=== PATIENT | female | born 1990 | race Caucasian/White ===

== ENCOUNTER 2020-04-08 12:32 | Outpatient (CLI) | payer OTHER, SELFPAY ==
--- NOTE | ~2020-04-08 | US_ITS ---
EXAMINATION: US OB <= 14 weeks fetus DATE: 04/08/2020 13:31 INDICATION: Supervision of . TECHNIQUE: Real-time transabdominal and transvaginal obstetric ultrasound. FINDINGS: Comparison to ultrasound dated 10/10/2019 The uterus measures 10.7 x 8.5 x 6.7 cm. There is an intrauterine gestational sac, with pole id entified. The crown rump length measures 2.14 cm, which correlates with a estimated gestational age of 8 weeks 5 days. Small subchorionic hemorrhage measuring 10 x 6 x 4 mm. heart tones are ident ified measuring 177 BPM. IMPRESSION: 1. SL IUP with an EGA of 8 weeks, 5 days (EDC by current ultrasound of 11/13/2020). 2: Small subchorionic hemorrhage. Reviewed, dictated and finalized at location B. IMPRESSION: 1. SL IUP with an EGA of 8 weeks, 5 days (EDC by current ultrasound of ). 2: Small subchorionic hemorrhage.
== END 2020-04-08 12:33 | disposition home or self-care (01) ==
LOC: ANHIMG 12:37
PROVIDERS: PCP Family Medicine; Visit Provider Obstetrics & Gynecology
DX: O09.291 Supervision of pregnancy with other poor reproductive or obstetric history, first trimester (principal); Z3A.08 8 weeks gestation of pregnancy
CPT/HCPCS: 76801

== ENCOUNTER 2020-10-23 05:35 | Inpatient (IN) | payer OTHER, SELFPAY ==
--- NOTE | 2020-10-22 22:01 | PM.IMHP ---
H&P: HPI History of Present Illness Date/Time: 10/22/20 22:01 Chief Complaint: Breech presentation and growth restriction at term. Narrative: Alysia Mcknight is a 29 year old female at 37 2/7 weeks admittied for primary cesearean section for persistant breech presentation. PNC significant for recently diagnosed growth restriction on 10/22 with an EFW at 9% the JEFFREY was low normal. The abdominal circumference measuring small. MFM who reviewed the ultrasound recommended delivery due to concern for early placental insufficiency. Patient was informed of findings and risk of continuing and risk of delivery and has opted for primary cesearean section for breech. PNC has been uncomplicated. Discussed external cephalic version and risk which I do not recommend with ultrasound findings and she does not desire attempt ECV. GBS results pending. labs reviewed. Review of Systems Review of Systems: All systems reviewed & are unremarkable except as noted in HPI and below Constitutional: Constitutional: Reports no additional constitutional complaints and Denies headache(s) Eyes: Eyes: Denies spots in vision ENT: Reports system reviewed and no additional complaints, except as documented and Denies headache(s) Cardiovascular: Cardiovascular: Denies chest pain and Denies dyspnea Respiratory: Respiratory: Denies dyspnea Gastrointestinal: Gastrointestinal: Reports no additional gastrointestinal complaints Genitourinary: Genitourinary: Reports amenorrhea Musculoskeletal: Musculoskeletal: Reports no additional musculoskeletal complaints Integumentary/Breasts: Skin/Breast: Denies breast mass and Denies rash Neurologic: Denies headache(s) Psychiatric: Psychiatric: Reports no additional psychiatric complaints [facility] Past Medical History Medical History (Updated 10/22/20 @ 20:53 by Los Charles MD) Missed Surgical History Surgical History [place] teeth removed Family History Family History Grandparent Diabetes mellitus Hypertension Father Family history of elevated blood lipids Hypertension Prostate carcinoma Cerebrovascular accident Social History Social History Smoking status: Never smoker Second hand tobacco smoke exposure: No Alcohol intake: former Substance use: never Spiritual care concerns: No Meds Home Medications and Allergies Home Medications Medication Instructions Recorded Confirmed Type vits 75-iron 28 mg-folic 1 pkg PO DAILY 09/23/19 10/22/20 History acid 800 mcg-omega3 440 mg oral pack Allergies Allergy/AdvReac Type Severity Reaction Status Date / Time No Known Allergies Allergy Verified 10/22/20 09:58 Exam Const: General: no acute distress Eyes: General: appearance normal, both eyes and all related structures Resp: Effort & Inspection: normal respiratory effort Cardio: Rate: regular rate GI: Other: Gravid no fundal tenderness no right upper quadrant pain Skin: General skin exam: no rashes or lesions noted Neuro: Cognition (Neuro): normal cognition Extrem: General: normal to inspection Psych: Mental Status: mental status grossly normal Assessment and Plan Assessment and plan (1) affected by growth restriction: Code(s): O36.5990 - Maternal care for other known or suspected poor growth, unspecified trimester, not applicable or unspecified Status: Acute Assessment and Plan: Delivery recommended via cesearean section due to breech presentation. Will proceed with cesearean section. (2) Breech presentation: Code(s): O32.1XX0 - Maternal care for breech presentation, not applicable or unspecified Status: Acute
[2020-10-23] VITALS (75 sets, daily range): BP systolic 92–121; BP diastolic 54–86; PULSE 56–165; RESP 10–18; TEMP 36.2–37; O2SAT 79–100; BMI 34.0
[2020-10-23 06:06] LABS: Basophils Absolute Auto 0.1 K/mm3 (0.0-0.1); Basophils Percent Auto 0.5 % (0.2-1.2); Eosinophils Absolute Auto 0.1 K/mm3 (0-0.3); Eosinophils Percent Auto 0.7 % (0-4.4); Hematocrit 34.8 % (37.0-47.0); Hemoglobin 11.8 g/dL (12.0-15.0); Immature Granulocyte Absolute 0.32 K/mm3 (0.00-0.031); Immature Granulocyte Percent A 3.3 % (0-0.5); Lymphocytes Absolute Auto 2.85 K/mm3 (0.9-3.2); Lymphocytes Percent Auto 29.6 % (18.3-44.2); Mean Corpuscular HGB Conc 33.9 g/dl (32-36); Mean Corpuscular Hemoglobin 31.5 pg (26-34); Mean Corpuscular Volume 92.8 fl (80-100); Mean Platelet Volume 10.3 fl (7.4-10.4); Monocytes Absolute Auto 0.8 K/mm3 (0.1-0.6); Monocytes Percent Auto 8.7 % (2.6-8.5); Neutrophils Absolute Auto 5.5 K/mm3 (1.3-6.7); Neutrophils Percent Auto 57.2 % (45.5-73.1); Platelet Count Result 227 k/mm3 (150-375); Red Blood Count 3.75 M/mm3 (4.2-5.4); Red Cell Distribution Width 12.9 % (11.5-14.5); White Blood Count 9.6 K/mm3 (4.5-10.0)
[2020-10-23] MEDS: LACTATED RINGERS 1,000 ML 125 ML IV CONT (06:22)
--- NOTE | 2020-10-23 06:29 | LDADM ---
This patient, Alysia Mcknight, was admitted to Labor/Delivery/Recovery 120 on 10/23/20 at 05:35. Plans for scheduled section, pain management and were discussed with patient. Patient/family oriented to hospital policies and general routines including ID bracelet, bed and alarms, visiting hours, pain management, procedures, bathroom and other care routines, personal items, smoking policy, room service/diet and guest tray routines, infant security routines, and visiting hours. Patient/Family are encouraged to report perceived risks to care and to ask questions if they do not understand what they are told or what they should do. See OBIX for further documentation.
--- NOTE | 2020-10-23 06:45 | WPDANESEPPF ---
Anes - Initial Pre Proc Eval Procedure: Operation Date: 10/23/20 07:30 Proposed Procedures p Section - Los Charles MD Date/Time: 10/23/20 06:45 Surgeon: Los Charles MD Pre Op Diagnosis: Section Patient Data Age: 29 Gender: F Height: 1.6 m Weight: 87.27 kg Last Vital Signs Temp 36.6 C 10/23/20 06:34 Pulse 74 10/23/20 06:32 BP 107/65 10/23/20 06:32 Allergies Allergy/AdvReac Type Severity Reaction Status Date / Time No Known Allergies Allergy Verified 10/22/20 09:58 Home Medications Medication Instructions Recorded Confirmed Type vits 75-iron 28 mg-folic 1 pkg PO DAILY 09/23/19 10/22/20 History acid 800 mcg-omega3 440 mg oral pack Laboratory Tests 10/23/20 10/23/20 05:58 05:58 WBC 9.6 K/mm3 K/mm3 (4.5-10.0) RBC 3.75 M/mm3 L M/mm3 (4.2-5.4) Hgb 11.8 g/dL L g/dL (12.0-15.0) Hct 34.8 % L % (37.0-47.0) MCV 92.8 fl fl (80-100) MCH 31.5 pg pg (26-34) MCHC 33.9 g/dl g/dl (32-36) RDW 12.9 % % (11.5-14.5) Plt Count 227 k/mm3 k/mm3 (150-375) MPV 10.3 fl fl (7.4-10.4) Immature Gran % (Auto) 3.3 % H % (0-0.5) Neut % (Auto) 57.2 % % (45.5-73.1) Lymph % (Auto) 29.6 % % (18.3-44.2) [place] % (Auto) 8.7 % H % (2.6-8.5) Eos % (Auto) 0.7 % % (0-4.4) Baso % (Auto) 0.5 % % (0.2-1.2) Lymph # (Auto) 2.85 K/mm3 K/mm3 (0.9-3.2) [place] # (Auto) 0.8 K/mm3 H K/mm3 (0.1-0.6) Eos # (Auto) 0.1 K/mm3 K/mm3 (0-0.3) Baso # (Auto) 0.1 K/mm3 K/mm3 (0.0-0.1) Abs Immat Gran (auto) 0.32 K/mm3 H K/mm3 (0.00-0.031) Absolute Neuts (auto) 5.5 K/mm3 K/mm3 (1.3-6.7) Absolute Nucleated RBC 0.0 K/mm3 K/mm3 (0.0-0.012) Nucleated RBC % 0.0 % % (0.0-0.2) RPR Pending Patient hx anesthesia problems: none Family hx anesthesia problems: none PMFSH Past Medical History Medical History (Updated 10/22/20 @ 20:53 by Los Charles MD) Missed Surgical History Surgical History [place] teeth removed Family History Family History Grandparent Diabetes mellitus Hypertension Father Family history of elevated blood lipids Hypertension Prostate carcinoma Cerebrovascular accident Social History Social History Smoking status: Never smoker Second hand tobacco smoke exposure: No Alcohol intake: former Substance use: never Spiritual care concerns: No Anes - Eval Final PreProcedure Day of Procedure 10/23/20 06:45 Patient weight: obese Heart: regular rate and rhythm Lungs: clear to auscultation and normal air movement Airway: Mallampati scale class II Neurological: alert and oriented Last oral intake: >/= 8 hours ASA classification: II Emergent: no Anesthetic plan: proceed Anesthesia type and monitoring: regional spinal and standard monitoring Informed Consent: The patient's anesthetic plan and its attendant risks and benefits were discussed with the patient/family/POA. Questions were solicited and answers provided to the satisfaction of the patient/family/POA.
--- NOTE | 2020-10-23 07:09 | WPDHPUPDATE1 ---
History and Physical Update Update Date/Time: 10/23/20 07:09 History and Physical has been reviewed, including an updated exam of the patient. There are NO changes in the patient's condition. Risks, benefits, and alternatives have been discussed and questions answered. Patient agrees to proceed with procedure.
--- NOTE | 2020-10-23 08:29 | PM.PROC ---
Procedure Note - Detailed Date of procedure: 10/23/20 Pre-op diagnosis: Section 1. Breech presentation 2. growth restriction at term Post-op diagnosis: same Procedure performed: Primary low transverse cesearean section. Description of procedure: After informed consent was obtained patient was taken to the operating room and adequate spinal anesthesia was administered. She was placed in supine position and prepped and draped in sterile fashion. heart tones were auscultated prior to a drape. Attention was turned to the abdomen and a Pfannenstiel skin incision was made along her prior Pfannenstiel scar. The subcutaneous tissue was dissected with scalpel and cautery. The fascia was incised in the midline stented bilaterally with Benoit scissors. The fascia was from rectus muscle superiorly and inferiorly bluntly and sharply. The midline was identified the midline was entered bluntly. The pelvic organs were visualized. The lower uterine segment and vesico-uterine peritoneum was visualized. A bladder flap was made. Bladder was dissected from the lower uterine segment. A low-transverse uterine incision was made and was extended bluntly. The amniotic cavity was entered. Clear fluid was noted. The buttocks were visualized and gently grasped and the legs were delivered in flex position. The arms were then delivered and the head was delivered. The infant was vigorously crying upon delivery. The cord was doubly clamped and cut and the infant was handed to nursery staff in attendance. Cord segment was obtained for cord gases. Cord blood was obtained. The placenta was removed manually. The uterine cavity was sponge curetted. The uterus was noted to have good tone. The uterus was exteriorized the incision of the uterus was closed in a running locking fashion with 0 Vicryl and a 2nd umbricating stitch of 0 Vicryl. Hemostasis was noted. The posterior cul-de-sac was irrigated. Uterus was placed back into the abdomen. The paracolic gutters were irrigated the uterine incision was inspected again and noted to be hemostatic. Interceed adhesion barrier was placed at the lower uterine segment and anterior uterus. The peritoneum was approximated in the midline with suture of [id number] of 3 O Vicryl. The fascia was closed in a running fashion with 0 Vicryl. There was an area at the left fascia area that was reinforced with figure of eight stitch of 0.Vicryl. Hemostasis was noted. Hemostasis was noted. Subcutaneous tissue was irrigated hemostasis obtained with cautery. The skin incision was closed with 4 O Vicryl on a Marcus needle. Dermabond was placed. Hemostasis was noted. The uterus was firm below the umbilicus. The QBL was 485cc. Sponge count was correct x3. The patient tolerated procedure well and was taken to recovery in stable condition. Anesthesia: spinal Surgeon: Los Charles MD Nuclear Power Plant Engineer: Nehal Salazar Estimated blood loss (mL): 485 IV fluids (mL): 800 Urine output (mL): 500 Drains: No Packing: No Pathology: yes (Placenta and cord) Complications: No immediate complications Condition: stable Disposition: floor (Recovery) Findings: Normal appearing uterus and fallopian tubes and ovaries. Fetus in yoko breech presentation. 5lb 10oz. Apgars 9,9.
[2020-10-23] MEDS: OXYTOCIN 30 UNITS/NS 500 ML 30 UNITS/500 ML BAG 125 UNITS IV CONT (09:11)
[2020-10-23 09:32] LABS: Rapid Plasma Reagin Non-Reactive (NonReactive)
--- NOTE | 2020-10-23 10:40 | PC.NURSE ---
Pt arrived on unit via stretcher accompanied by spouse. PT alert and awake and oriented to room 277 and surrounding area. PT introductions made and plan of care discussed per post op c section, pain management, breast feeding, daily care activities. Welcome packet reviewed and discussed. PT verbalized understanding of such care.
[2020-10-23] MEDS: KETOROLAC 30 MG/ML VIAL (*BKC) IV PUSH ×2 (11:13→17:14)
[2020-10-23] MEDS: ACETAMINOPHEN 325 MG TABLET 650 MG PO (14:23)
[2020-10-23] MEDS: DEXTROSE 5%/0.45% SOD CHL 1,000 ML 125 ML IV CONT (14:23)
[2020-10-23] MEDS: SIMETHICONE 80 MG TAB.CHEW PO ×2 (14:24→17:13)
[2020-10-23] MEDS: DOCUSATE SODIUM 100 MG CAPSULE PO (17:14)
[2020-10-23] MEDS: diphenhydrAMINE HCl INJ 50 MG/ML VIAL 25 MG IV PUSH (20:49)
[2020-10-24] MEDS: KETOROLAC 30 MG/ML VIAL (*BKC) IV PUSH (02:07)
[2020-10-24] MEDS: ACETAMINOPHEN 325 MG TABLET 650 MG PO ×2 (02:11→12:12)
[2020-10-24 05:17] LABS: Basophils Percent Auto 0.3 % (0.2-1.2); Eosinophils Absolute Auto 0.1 K/mm3 (0-0.3); Eosinophils Percent Auto 0.5 % (0-4.4); Hematocrit 30.2 % (37.0-47.0); Hemoglobin 10.7 g/dL (12.0-15.0); Immature Granulocyte Absolute 0.18 K/mm3 (0.00-0.031); Immature Granulocyte Percent A 1.5 % (0-0.5); Lymphocytes Absolute Auto 1.75 K/mm3 (0.9-3.2); Lymphocytes Percent Auto 14.7 % (18.3-44.2); Mean Corpuscular HGB Conc 35.4 g/dl (32-36); Mean Corpuscular Hemoglobin 33.2 pg (26-34); Mean Corpuscular Volume 93.8 fl (80-100); Mean Platelet Volume 10.7 fl (7.4-10.4); Monocytes Absolute Auto 1.1 K/mm3 (0.1-0.6); Monocytes Percent Auto 9.2 % (2.6-8.5); Neutrophils Absolute Auto 8.8 K/mm3 (1.3-6.7); Neutrophils Percent Auto 73.8 % (45.5-73.1); Platelet Count Result 181 k/mm3 (150-375); Red Blood Count 3.22 M/mm3 (4.2-5.4); White Blood Count 11.9 K/mm3 (4.5-10.0)
[2020-10-24 08:20] VITALS: BP 123/64; PULSE 93; RESP 18; TEMP 37.1
[2020-10-24] MEDS: DOCUSATE SODIUM 100 MG CAPSULE PO ×2 (08:20→16:42)
[2020-10-24] MEDS: IBUPROFEN 600 MG TABLET PO ×3 (08:20→23:45)
[2020-10-24] MEDS: TETANUS,DIPHTHERIA,AC PERTUSSIS ADULT (0.5 ML) BOOSTRIX IM (08:20)
[2020-10-24] MEDS: POLYSACCHARIDE IRON COMPLEX 150 MG CAPSULE PO (08:20)
[2020-10-24] MEDS: MULTIVIT/MIN/PREN/FOL AC/IRON TABLET 1 TAB PO (08:20)
--- NOTE | 2020-10-24 09:46 | WPDANLDPN2 ---
Anes-Prog Note L&D Date/Time: 10/24/20 09:46 Comfortable throughout: section Neuraxial method: spinal Epidural/Spinal procedure site: clean & non-tender Neuro status: Neuro function grossly intact. Cardiovascular status: normal Respiratory status: normal Airway patency: baseline Mental status: baseline Post-Op hydration status: normal Vital Signs: Last Vital Signs Temp 36.9 C 10/23/20 23:00 Pulse 79 10/23/20 23:00 Resp 14 10/23/20 23:00 BP 99/54 L 10/23/20 23:00 Pulse Ox 95 10/23/20 23:00 Pain score (VAS): 2 I/O: Intake & Output 10/23/20 10/24/20 10/24/20 23:59 07:59 15:59 Intake Total 1500 Output Total 1900 Balance -400 Post-procedural complaints: pruritis moderate, treatment effective Patient feedback: Patient satisfied with anesthetic care.
--- NOTE | 2020-10-24 09:46 | WPDANLDNPN2 ---
Anes-Prog Note L&D-Neuraxial Date/Time: 10/24/20 09:46 Neuraxial medications: intrathecal PF morphine Opiod-related complaints: pruritis moderate, treatment effective Patient feedback: Patient satisfied with post-operative pain management.
--- NOTE | 2020-10-24 11:20 | P.PNOB_ITS ---
OB - PN: Subj Subjective Date/time seen: 10/24/20 11:20 Patient comments: no complaints, pain well controlled, incisional pain, tolerating diet, flatus present and other (Lochia similar to menses) baby status: doing well OB - PN: Obj Data Labs CBC & Chem 7: 10/24/20 04:46 Labs: Laboratory Results - last 24 hr 10/24/20 04:46 WBC 11.9 H RBC 3.22 L Hgb 10.7 L Hct 30.2 L MCV 93.8 MCH 33.2 D MCHC 35.4 RDW 13.0 Plt Count 181 MPV 10.7 H Immature Gran % (Auto) 1.5 H Neut % (Auto) 73.8 H Lymph % (Auto) 14.7 L [place] % (Auto) 9.2 H Eos % (Auto) 0.5 Baso % (Auto) 0.3 Lymph # (Auto) 1.75 [place] # (Auto) 1.1 H Eos # (Auto) 0.1 Baso # (Auto) 0.0 Abs Immat Gran (auto) 0.18 H Absolute Neuts (auto) 8.8 H Absolute Nucleated RBC 0.0 Nucleated RBC % 0.0 OB - PN A/P Plan day: 1 (s/p C section, doing well) Plan: routine care Time Spent With Patient Time: Total time spent is greater than 50% in coordination of care (as documented) at patient's floor/unit and/or counseling patient: Exam Const: General: no acute distress Resp: Auscultation: clear to auscultation bilaterally Cardio: Rate: regular rate Rhythm: regular rhythm GI: Inspection: non-distended, incision (Intact without erythema, drainage, or induration) and other (Fundus firm and nontender at umbilicus) GI Palp: Yes abdominal tenderness (appropriate ) and Yes Soft to palpation Extrem: General: no edema
[2020-10-24] MEDS: HYDROcodone/acetaminophen (*CRX) 5-325 MG TABLET 1 TAB PO (14:29)
[2020-10-24] MEDS: HYDROcodone/acetaminophen (*CRX) 10-325 MG TABLET 1 TAB PO (18:56)
[2020-10-24 19:00] VITALS: BP 100/58; PULSE 83; RESP 14; TEMP 36.7; O2SAT 99
[2020-10-25] MEDS: HYDROcodone/acetaminophen (*CRX) 10-325 MG TABLET 1 TAB PO ×2 (03:15→17:40)
[2020-10-25] MEDS: DOCUSATE SODIUM 100 MG CAPSULE PO ×2 (07:39→16:25)
[2020-10-25] MEDS: MULTIVIT/MIN/PREN/FOL AC/IRON TABLET 1 TAB PO (07:40)
[2020-10-25] MEDS: IBUPROFEN 600 MG TABLET PO ×3 (07:40→23:44)
[2020-10-25 08:20] VITALS: BP 106/66; RESP 18; TEMP 37
--- NOTE | 2020-10-25 09:50 | PM.OBPNVD ---
OB - PN: Subj Subjective Date/time seen: 10/25/20 09:50 Patient comments: no complaints, pain well controlled, tolerating diet, flatus present and other (Ambulating and voiding without problems. Lochia similar to menses) baby status: doing well OB - PN: Obj Data Labs CBC & Chem 7: 10/24/20 04:46 OB - PN A/P Plan day: 2 (s/p C section, doing well) Plan: routine care Comments: Baby's bilirubin is improving, now off bili lights. She was told she could possibly go home after 7 pm tonight (per duplicator punch operator), so we agreed to keep her overnight again tonight and plan likely discharge tomorrow Time Spent With Patient Time: Total time spent is greater than 50% in coordination of care (as documented) at patient's floor/unit and/or counseling patient: Time with patient: less than 15 minutes Exam Const: General: no acute distress Resp: Auscultation: clear to auscultation bilaterally Cardio: Rate: regular rate Rhythm: regular rhythm GI: Inspection: non-distended, incision (Intact without erythema, drainage, or induration) and other (Fundus firm and nontender below umbilicus) GI Palp: Yes abdominal tenderness (appropriate) and Yes Soft to palpation Extrem: General: no edema
[2020-10-25] MEDS: ACETAMINOPHEN 325 MG TABLET 650 MG PO (11:25)
[2020-10-25 19:46] VITALS: BP 128/69; PULSE 72; RESP 17; RESP 18; TEMP 36.7; O2SAT 100; O2SAT 98
[2020-10-26] MEDS: HYDROcodone/acetaminophen (*CRX) 5-325 MG TABLET 1 TAB PO (03:22)
[2020-10-26 07:45] VITALS: BP 122/75; PULSE 70; RESP 16; TEMP 36.8; O2SAT 100
[2020-10-26] MEDS: IBUPROFEN 600 MG TABLET PO (08:58)
[2020-10-26] MEDS: MULTIVIT/MIN/PREN/FOL AC/IRON TABLET 1 TAB PO (08:59)
[2020-10-26] MEDS: DOCUSATE SODIUM 100 MG CAPSULE PO (08:59)
--- NOTE | 2020-10-26 11:26 | PC.NURSE ---
Consulted with patient, reviewed infant feeding cues, frequencies, duration of feedings, feeding elimination flow sheet, and signs of adequate intake. Demonstrated stimulation techniques to wake infant for feeding. Assisted with infant to breast. Reviewed positioning/alignment, holding breast and asymmetrical latch on. Infant was able to latch well but would not continue to suck on the breast or on nipple shield. Infant Infant sleepy at the breast. Attempted to get infant to feed at breast for at least 15 minutes at 955 and again at 1100. Reviewed signs of a correct latch, effective nursing and suck swallow ratio. Mother does not have pain with pumping or when infant is at breast. Nipple care reviewed. Instructed mother to call out for RN assistance if she is unable to latch for feeding or she has discomfort with nursing. Instructed feeding should be initiated three hours from start of last feeding or if feeding cues are noted before. Mother voiced understanding of information shared. Instructions reviewed on breast pump care and usage, pumping schedule, nipple care, and collection and storage of breast milk. Encouraged [id number], breast massage and manual expression to stimulate supply. Assessed patient for correct flange size, placement and draw. Patient verbalizes and demonstrates understanding of instructions. Mother verbalizes she is able to independently latch infant when is more awake at the breast. She denies any nipple discomfort, is feeding as required and waking to feed if needed. has been attempting to feed at breast for 15 minutes and then gets supplement of breastmilk then formula. has lost 9.21 percent of weight, and is currently meeting outcomes output, jaundice and feeding frequencies. Mother states she feels confident to continue effective at home. Mom given info on services for questions once she gets home. Reviewed transition to breast milk, signs of adequate intake, and engorgement/relief. Instructed to call ICP if intake/output less than required. Reviewed community resources on the [facility] website and in the Mom/Baby guide. Information on outpatient services provided. Mother has no further questions at this time.
[2020-10-26] MEDS: ACETAMINOPHEN 325 MG TABLET 650 MG PO (12:25)
--- NOTE | 2020-10-26 12:30 | PC.NURSE ---
Patient viewed the discharge video Mother & Baby Care, The First Two Weeks . Patient was given the opportunity and encouraged to ask questions. Patient verbalized understanding of information shared and has been given the mother/baby guide for home reference.
[2020-10-27 10:43] VITALS: BP 118/66; PULSE 75; RESP 16; TEMP 36.9; O2SAT 100
--- NOTE | 2020-11-16 22:46 | PM.OBDSVD ---
DS: Admitting Diagnosis Admitting Diagnosis Admitting Diagnosis: 1. Intrauterine growth restriction. 2. Breech presentation DS: Discharge Diagnosis Discharge Diagnosis (1) Breech presentation: Code(s): O32.1XX0 - Maternal care for breech presentation, not applicable or unspecified Status: Acute (2) affected by growth restriction: Code(s): O36.5990 - Maternal care for other known or suspected poor growth, unspecified trimester, not applicable or unspecified Status: Acute OB - DS: Summary OB Procedures : Ultrasound OB Procedures Intrapartum: low cervical, transverse OB Procedures: : None Peripartum Data Procedures: Procedures Operation Date: 10/23/20 07:30 Actual Procedures Side Surgeon p Section Los Charles MD Time Spent with Patient Time attestation: Total time spent providing and/or coordinating discharge services: Exam Const: General: comfortable and no acute distress Resp: Effort & Inspection: normal respiratory effort Auscultation: clear to auscultation bilaterally Cardio: Rate: regular rate GI: Other: fundus below umbilicus, incision no drainage or erythema, intact Psych: Mental Status: mental status grossly normal Affect: normal affect DS: Data Data Completed and Pending Completed studies during hospitalization: Pending at discharge 10/23/20 08:11 Surgical [PTH] Routine Procedures/Treatments: Primary low transverse cesearean section Discharge Plan Discharge Attending physician on discharge: Los Charles Consulting providers: Christiano Rodrigez ; Denisa Silverman Discharging Clinician: Los Charles Anticipated Discharge Date/Time: 10/26/20 08:36 Patient Disposition: Home, Self-Care Activity: may shower, may drive after 2 weeks and pelvic rest Diet: regular Discharge Instructions: Post cesearean section instructions. Call for fever, saturating more than a pad an hour, leg pain or redness. May take over the counter Ibuprofen or Motrin for pain as needed. Follow directions on bottle. Take PNV daily. Education: Mom and Baby Guide Given to: Mother Follow-Up: Call your delivering provider's office for an appointment to be seen in: 1 Week Mom and baby [facility] come to the [facility] for the follow-up appointment. Appointment Date/Time: October 27, 2020 at 11:00 am What to expect at your follow-up visit: Blood Pressure Check Physical Assessment Call [phone] if you are unable to keep your appointment time. BREAST CARE: * Wear a snug supportive bra. * For engorgement discomfort: Breast Feeding: * Apply warm moist washcloths * Express milk as needed to relieve engorgement * Wear loose clothing Bottle Feeding: * May apply ice packs * For sore nipples: * Identify correct latch-on * Apply warm moist washcloths before and after nursing * Air dry nipples after nursing * May apply Lansinoh cream to nipples ABDOMINAL INCISION: (if applicable) * Allow incision to air dry * Do NOT use lotions for powders on your incision * When showering, allow soap and water to run over the incision, but do not wash incision EPISIOTOMY/PERINEAL CARE: * Until bleeding stops, use your juani bottle after urinating * Change your pad frequently throughout the day * You may take sitz baths several times a day (fill your bathtub with warm water and soak for 20 minutes.) Do NOT bathe in the water * No tub baths until seen by your physician - You may shower ACTIVITY: * Rest as much as possible. * Do not exercise or lift anything heavier than your baby (such as laundry or other children.) * Avoid stairs or driving as much as possible. * Do not put anything into the vagina. No douching, tampons, or sexual activity until seen by physician. NOTIFY PHYSICIAN IF YOU HAVE AN
== END 2020-10-26 13:20 | disposition home or self-care (01) | DRG 788 ==
LOC: ANHLDR 05:39 → ANHOB2 11:43
PROVIDERS: Admitting Provider Obstetrics & Gynecology; PCP Family Medicine; Visit Provider Obstetrics & Gynecology
PROC: 10D00Z1 Extraction of Products of Conception, Low, Open Approach (ICD-10-PCS; CPT 59514; principal; 2020-10-23 07:30)
DX: O32.1XX0 Maternal care for breech presentation, not applicable or unspecified (principal); Z37.0 Single live birth; Z3A.37 37 weeks gestation of pregnancy; O36.5930 Maternal care for other known or suspected poor fetal growth, third trimester, not applicable or unspecified; O99.214 Obesity complicating childbirth; E66.9 Obesity, unspecified; O99.73 Diseases of the skin and subcutaneous tissue complicating the puerperium; L29.9 Pruritus, unspecified
CPT/HCPCS: 36415; 85025; 86592; 86850; 86900; 86901; 88307; 90715; A9270; J0131; J1200; J1885; J2274; J2370; J2590; J7120

== ENCOUNTER 2022-08-23 10:55 | Outpatient (RCR) | payer OTHER, SELFPAY ==
--- NOTE | ~2022-08-23 | US_ITS ---
EXAMINATION: US OB BPP wo non-stress DATE: 08/23/2022 12:23 BEAM MACHINE OPERATOR INDICATION: Low baseline in office. Evaluate well-being. TECHNIQUE: Real-time transabdominal obstetric ultrasound. FINDINGS: No prior studies for comparison. There is a single living fetus in vertex presentation. The placenta is fundal without placenta previ a. cardiac activity and movement is noted with a heart rate of 122 beats per minute. Biophysical profile: breathin of 2 movement: 2 of 2 tone: 2 of 2 Amniotic flud pocket: 2 of 2 Total score: 8 of 8 IMPRESSION: 1. Single living intrauterine in vertex presentation. 2: Total biophysical profile score of 8/8. Reviewed, dictated and finalized at location A. MACHINE OPERATOR
[2022-08-23 11:43] VITALS: BP 116/69; PULSE 83
--- NOTE | 2022-08-23 12:30 | PC.NURSE ---
Spoke with Dr. Charles, orders to discharge to home after reactive NST and BPP 05/02.
== END 2022-10-22 07:42 | disposition home or self-care (01) ==
LOC: ANHOBOP 10:55
PROVIDERS: PCP Family Medicine; Visit Provider Obstetrics & Gynecology
DX: O36.8330 Maternal care for abnormalities of the fetal heart rate or rhythm, third trimester, not applicable or unspecified (principal); Z3A.34 34 weeks gestation of pregnancy
CPT/HCPCS: 59025; 76819

== ENCOUNTER 2022-10-01 07:07 | Inpatient (IN) | payer OTHER, SELFPAY ==
[2022-10-01] VITALS (166 sets, daily range): BP systolic 78–137; BP diastolic 39–80; PULSE 78–140; RESP 15–17; TEMP 37.2–37.4; O2SAT 79–100; BMI 37.5
--- NOTE | 2022-10-01 11:49 | LDADM ---
This patient, Alysia Mcknight, was admitted to Labor/Delivery/Recovery 102 on 10/01/22 at 07:07. Plans for labor, pain management and were discussed with patient. Patient/family oriented to hospital policies and general routines including ID bracelet, bed and alarms, visiting hours, pain management, procedures, bathroom and other care routines, personal items, smoking policy, room service/diet and guest tray routines, security routines, and visiting hours. Patient/Family are encouraged to report perceived risks to care and to ask questions if they do not understand what they are told or what they should do. See OBIX for further documentation.
[2022-10-01 12:14] LABS: Basophils Absolute Auto 0.1 K/mm3 (0.0-0.1); Basophils Percent Auto 0.4 % (0.2-1.2); Hematocrit 37.4 % (37.0-47.0); Hemoglobin 12.2 g/dL (12.0-15.0); Immature Granulocyte Absolute 0.42 K/mm3 (0.00-0.031); Immature Granulocyte Percent A 2.4 % (0-0.5); Lymphocytes Absolute Auto 1.64 K/mm3 (0.9-3.2); Lymphocytes Percent Auto 9.4 % (18.3-44.2); Mean Corpuscular HGB Conc 32.6 g/dl (32-36); Mean Corpuscular Hemoglobin 31.1 pg (26-34); Mean Corpuscular Volume 95.4 fl (80-100); Mean Platelet Volume 10.7 fl (7.4-10.4); Monocytes Absolute Auto 0.7 K/mm3 (0.1-0.6); Monocytes Percent Auto 4.1 % (2.6-8.5); Neutrophils Absolute Auto 14.6 K/mm3 (1.3-6.7); Neutrophils Percent Auto 83.7 % (45.5-73.1); Platelet Count Result 218 k/mm3 (150-375); Red Blood Count 3.92 M/mm3 (4.2-5.4); Red Cell Distribution Width 14.1 % (11.5-14.5); White Blood Count 17.4 K/mm3 (4.5-10.0)
[2022-10-01] MEDS: LACTATED RINGERS 1,000 ML 125 ML IV CONT ×3 (12:24→21:24)
[2022-10-01] MEDS: CALCIUM CARBONATE (TUMS) 500 MG (200 MG ELEMENTAL) PO (12:24)
--- NOTE | 2022-10-01 12:56 | WPDANESEPP ---
Anes - Eval Pre Procedure Procedure: labor epidural Date/Time: 10/01/22 12:56 Preop Diagnosis: labor pain Pre Op Diagnosis: Contractions Patient Data Age: 31 Gender: F Height: 1.57 m Weight: 93 kg Last Vital Signs O2 Del Method Room Air 10/01/22 11:48 Allergies Allergy/AdvReac Type Severity Reaction Status Date / Time No Known Allergies Allergy Verified 10/01/22 11:56 Home Medications Medication Instructions Recorded Confirmed Type prenat.vits,darrin,eno-[id number]-vujgt 1 tablet PO DAILY 03/01/22 10/01/22 History Laboratory Tests 10/01/22 10/01/22 11:45 11:45 WBC 17.4 K/mm3 H K/mm3 (4.5-10.0) RBC 3.92 M/mm3 L M/mm3 (4.2-5.4) Hgb 12.2 g/dL g/dL (12.0-15.0) Hct 37.4 % % (37.0-47.0) MCV 95.4 fl fl (80-100) MCH 31.1 pg pg (26-34) MCHC 32.6 g/dl g/dl (32-36) RDW 14.1 % % (11.5-14.5) Plt Count 218 k/mm3 k/mm3 (150-375) MPV 10.7 fl H fl (7.4-10.4) Immature Gran % (Auto) 2.4 % H % (0-0.5) Neut % (Auto) 83.7 % H % (45.5-73.1) Lymph % (Auto) 9.4 % L % (18.3-44.2) [place] % (Auto) 4.1 % % (2.6-8.5) Eos % (Auto) 0.0 % % (0-4.4) Baso % (Auto) 0.4 % % (0.2-1.2) Lymph # (Auto) 1.64 K/mm3 K/mm3 (0.9-3.2) [place] # (Auto) 0.7 K/mm3 H K/mm3 (0.1-0.6) Eos # (Auto) 0.0 K/mm3 K/mm3 (0-0.3) Baso # (Auto) 0.1 K/mm3 K/mm3 (0.0-0.1) Abs Immat Gran (auto) 0.42 K/mm3 H K/mm3 (0.00-0.031) Absolute Neuts (auto) 14.6 K/mm3 H K/mm3 (1.3-6.7) Absolute Nucleated RBC 0.0 K/mm3 K/mm3 (0.0-0.012) Nucleated RBC % 0.0 % % (0.0-0.2) RPR Pending Patient hx anesthesia problems: none Family hx anesthesia problems: none Results Review: All pre-operative results and documents have been reviewed as part of the pre-operative evaluation. [facility] Past Medical History Medical History Missed Surgical History Surgical History Previous section [place] teeth removed Family History Family History Grandparent Diabetes mellitus Hypertension Father Family history of elevated blood lipids Hypertension Prostate carcinoma Cerebrovascular accident Social History Social History Smoking status: Never smoker Second hand tobacco smoke exposure: No Alcohol intake: current Substance use: never Lack of Transportation: No Lack of Food: Never True Current Housing: I Do Not Have Housing Concerned About Future Housing: No Difficulty Paying Gas/Electric Bills: No Difficulty Paying for Meds: No Currently Unemployed: No Education: Bachelor's Degree Difficulty w/ Childcare or Family Care: No Spiritual care concerns: No Exam Day of Procedure 10/01/22 12:56 Patient weight: normal Heart: regular rate and rhythm Lungs: clear to auscultation and normal air movement Airway: Mallampati scale Neurological: alert and oriented
--- NOTE | 2022-10-01 14:02 | PM.IMHP ---
H&P: HPI History of Present Illness Date/Time: 10/01/22 14:02 Chief Complaint: Contractions Narrative: Patient is a at 39 6/7 by edc 10/02/22 based on LMP 12/26/21 c/w 10 week ultrasound. PNC significant for prior c/section for breech. She has been counseled regarding options/risk/benefits of repeat c/section vs trial of labor. She presented with contractions every 5 minutes starting approximately 0500. On L and D she was 2cm and contractions every 5 minutues. Cervix had changed from prior exam the day before she was 1/50%. She walked for two hours and no change but contractions mod to strong and she was admitted for early labor. She has opted to do a trial of labor. Labs reviewed. GBS neg. Review of Systems Review of Systems: All systems reviewed & are unremarkable except as noted in HPI and below Constitutional: Constitutional: Reports no additional constitutional complaints and Denies headache(s) Eyes: Eyes: Denies spots in vision ENT: Reports system reviewed and no additional complaints, except as documented and Denies headache(s) Cardiovascular: Cardiovascular: Denies chest pain and Denies dyspnea Respiratory: Respiratory: Denies dyspnea Gastrointestinal: Gastrointestinal: Reports no additional gastrointestinal complaints Genitourinary: Genitourinary: Reports amenorrhea Musculoskeletal: Musculoskeletal: Reports no additional musculoskeletal complaints Integumentary/Breasts: Skin/Breast: Denies breast mass and Denies rash Neurologic: Denies headache(s) Psychiatric: Psychiatric: Reports no additional psychiatric complaints PMFSH Past Medical History Medical History Missed Surgical History Surgical History Previous section [place] teeth removed Family History Family History Grandparent Diabetes mellitus Hypertension Father Family history of elevated blood lipids Hypertension Prostate carcinoma Cerebrovascular accident Social History Social History Smoking status: Never smoker Second hand tobacco smoke exposure: No Alcohol intake: current Substance use: never Lack of Transportation: No Lack of Food: Never True Current Housing: I Do Not Have Housing Concerned About Future Housing: No Difficulty Paying Gas/Electric Bills: No Difficulty Paying for Meds: No Currently Unemployed: No Education: Bachelor's Degree Difficulty w/ Childcare or Family Care: No Spiritual care concerns: No Meds Home Medications and Allergies Home Medications Medication Instructions Recorded Confirmed Type prenat.vits,darrin,ydr-odhp-ksfzj 1 tablet PO DAILY 03/01/22 10/01/22 History Allergies Allergy/AdvReac Type Severity Reaction Status Date / Time No Known Allergies Allergy Verified 10/01/22 11:56 Vital Signs Vital Signs - 24 hr 10/01/22 11:48 10/01/22 12:57 10/01/22 13:02 Pulse Rate 94 Blood Pressure 132/72 Pulse Oximetry 100 Oxygen Delivery Room Air 10/01/22 13:07 10/01/22 13:12 10/01/22 13:15 Pulse Rate 102 H Blood Pressure 126/75 Pulse Oximetry 100 100 Oxygen Delivery 10/01/22 13:17 10/01/22 13:22 10/01/22 13:25 Pulse Rate 91 102 H Blood Pressure 137/71 129/62 Pulse Oximetry 100 100 100 Oxygen Delivery 10/01/22 13:27 10/01/22 13:30 10/01/22 13:33 Pulse Rate 110 H 104 H 104 H Blood Pressure 126/77 133/70 116/70 Pulse Oximetry 99 Oxygen Delivery 10/01/22 13:35 10/01/22 13:36 10/01/22 13:39 Pulse Rate 115 H 111 H Blood Pressure 118/63 120/69 Pulse Oximetry 100 Oxygen Delivery 10/01/22 13:40 10/01/22 13:42 10/01/22 13:45 Pulse Rate 109 H 113 H Blood Pressure 119/66 119/69 Pulse Oximetry 99 99 Oxygen Delivery 10/01/22 13:48 10/01/22 13:50 10/01/22
--- NOTE | 2022-10-01 14:14 | PM.OBPNVD ---
OB - PN: Subj Subjective Date/time seen: 10/01/22 14:14 Narrative: FHT 135 Cat 1, AROM clear, cx 3/90/0, fluid light mec, light blood tinged, IUPC placed. Continue expectant management. OB - PN: Obj Data Labs 10/01/22 11:45 Labs: Laboratory Results - last 24 hr 10/01/22 10/01/22 11:45 11:45 WBC 17.4 H RBC 3.92 L Hgb 12.2 Hct 37.4 MCV 95.4 MCH 31.1 MCHC 32.6 RDW 14.1 Plt Count 218 MPV 10.7 H Immature Gran % (Auto) 2.4 H Neut % (Auto) 83.7 H Lymph % (Auto) 9.4 L [place] % (Auto) 4.1 Eos % (Auto) 0.0 Baso % (Auto) 0.4 Lymph # (Auto) 1.64 [place] # (Auto) 0.7 H Eos # (Auto) 0.0 Baso # (Auto) 0.1 Abs Immat Gran (auto) 0.42 H Absolute Neuts (auto) 14.6 H Absolute Nucleated RBC 0.0 Nucleated RBC % 0.0 Blood Type O Positive Antibody Screen Negative OB - PN A/P Time Spent With Patient Time: Total time spent is greater than 50% in coordination of care (as documented) at patient's floor/unit and/or counseling patient:
[2022-10-01] MEDS: FAMOTIDINE 20 MG/2 ML VIAL IV PUSH (16:14)
[2022-10-01] MEDS: OXYTOCIN 30 UNITS/NS 500 ML 30 UNITS/500 ML BAG IV CONT (16:21)
[2022-10-01] MEDS: ONDANSETRON INJ 4 MG/2 ML VIAL IV PUSH (19:43)
--- NOTE | 2022-10-01 23:46 | P.PCNOB_ITS ---
OB - Delivery Note Procedure Delivery date: 10/01/22 Procedure: Vaginal after section Events: Previous Delivery Induction method: AROM Delivery augmentation: Rupture of Membranes Delivery monitor: External FHT and Internal Uterine Route of delivery: Episiotomy description: Left Mediolateral Laceration Description: Periurethral Delivery repair: vicryl (3.0 vicryl) Specimen: Yes (placenta and cord) Quantitative Blood Loss (ml): 200 Anesthesia type: Epidural Disposition: Floor Complications: None Narrative: She was admitted in early labor. She was meagan regularly and had cervical change from her exam yesterday. She had dilated to 3cm and had AROM light meconium. IUPC placed. She progressed slowly into labor. She was pitocin augmented. She progressed to complete. Second stage of labor with decelerations. A left mediolateral episiotomy performed. delivered. Nose mouth suctioned with bulb at perineum. The anterior shoulder delivered and the rest of the infant delivered. initially had crying. Cord was doubly clamped and cut. Peds available due to meconium which while pushing the meconium was noted to be thick. Infant was eventually taken to warmer due to grunting. Placenta delivered spontaneously and intact. Uterine fundus firm. MLE and left lateral periurethral laceration repaired with 3.0 vicryl. Patient tolerated procedure well. [place] Baby Date of : 10/01/22 Time of : 23:20 Weeks of gestation at delivery: 39 gender: Male Weight (pounds): 7 Weight (ounces): 12 presentation: vertex position: Right Occiput Anterior Placenta delivery description: Spontaneous Cord Vessel Description: 3 Vessels and Clamped/Cut (short cord) score one minute: 8 score five minutes: 9
[2022-10-01] MEDS: ACETAMINOPHEN 325 MG TABLET 650 MG PO (23:54)
[2022-10-01] MEDS: OXYTOCIN 30 UNITS/NS 500 ML 30 UNITS/500 ML BAG 125 UNITS IV CONT (23:54)
[2022-10-02] VITALS (10 sets, daily range): BP systolic 106–135; BP diastolic 54–74; PULSE 88–105; RESP 18–20; TEMP 36.5–36.8; O2SAT 97–100
[2022-10-02] MEDS: BENZOCAINE 20% AER SPR (*SP) 56 GM CAN 1 SPRAY TOPICAL (00:23)
[2022-10-02] MEDS: WITCH HAZEL 40 PADS 1 PAD TOPICAL (00:23)
[2022-10-02] MEDS: LORATADINE 10 MG TABLET PO (00:24)
[2022-10-02] MEDS: IBUPROFEN 600 MG TABLET PO ×4 (00:42→22:48)
--- NOTE | 2022-10-02 01:50 | OBPPTRN ---
Patient transferred to post room #280 via wheelchair. Support person present. Oriented to unit, room, information board, rooming in, admission packet and security measures. Patient verbalizes understanding.
[2022-10-02 04:51] LABS: Hematocrit 33.4 % (37.0-47.0); Hemoglobin 11.1 g/dL (12.0-15.0)
[2022-10-02] MEDS: ACETAMINOPHEN 325 MG TABLET 650 MG PO ×3 (06:03→20:04)
--- NOTE | 2022-10-02 08:40 | P.PNOB_ITS ---
OB - PN: Subj Subjective Date/time seen: 10/02/22 08:40 Patient comments: no complaints, pain well controlled and tolerating diet [place] feeding status: exclusively breast feeding Narrative: patient doing well this AM. No complaints. Pain is well controlled. She reports minimal bleeding. She is ambulating and voiding without difficulty. She is tolerating PO. She denies N/V, fever, chills. OB - PN: Obj Data Labs 10/02/22 04:46 Labs: Laboratory Results - last 24 hr 10/01/22 10/01/22 10/02/22 11:45 11:45 04:46 WBC 17.4 H RBC 3.92 L Hgb 12.2 11.1 L Hct 37.4 33.4 L MCV 95.4 MCH 31.1 MCHC 32.6 RDW 14.1 Plt Count 218 MPV 10.7 H Immature Gran % (Auto) 2.4 H Neut % (Auto) 83.7 H Lymph % (Auto) 9.4 L [place] % (Auto) 4.1 Eos % (Auto) 0.0 Baso % (Auto) 0.4 Lymph # (Auto) 1.64 [place] # (Auto) 0.7 H Eos # (Auto) 0.0 Baso # (Auto) 0.1 Abs Immat Gran (auto) 0.42 H Absolute Neuts (auto) 14.6 H Absolute Nucleated RBC 0.0 Nucleated RBC % 0.0 Blood Type O Positive Antibody Screen Negative OB - PN A/P Plan day: 1 Plan: routine care Comments: patient doing well H/H stable was transferred due to meconium aspiration. Pt requesting day pass to visit continue routine care Time Spent With Patient Time: Total time spent is greater than 50% in coordination of care (as documented) at patient's floor/unit and/or counseling patient: Time with patient: less than 15 minutes Review of Systems Review of Systems: All systems reviewed & are unremarkable except as noted in HPI and below Exam Const: General: comfortable and no acute distress Resp: Effort & Inspection: normal respiratory effort Cardio: Rate: regular rate GI: GI Palp: Yes Soft to palpation and No Tenderness to palpation present (GI) Auscultation: normal bowel sounds Other: fundus firm and below umbilicus. Psych: Affect: normal affect
--- NOTE | 2022-10-02 08:40 | WPDANLDPN2 ---
Anes-Prog Note L&D Date/Time: 10/02/22 08:40 Comfortable throughout: labor and delivery Neuraxial method: epidural Epidural/Spinal procedure site: clean & non-tender Neuro status: Neuro function grossly intact. Cardiovascular status: normal Respiratory status: normal Airway patency: baseline Mental status: baseline Post-Op hydration status: normal Vital Signs: Last Vital Signs Temp 36.5 C 10/02/22 04:58 Pulse 100 10/02/22 04:58 Resp 20 10/02/22 04:58 BP 117/72 10/02/22 04:58 Pulse Ox 97 10/02/22 04:58 O2 Del Method Room Air 10/02/22 01:50 Pain score (VAS): 10/04 I/O: Intake & Output 10/01/22 10/02/22 10/02/22 23:59 07:59 15:59 Intake Total 1000 Output Total 200 91 Balance 800 -91 Post-procedural complaints: none Patient feedback: Patient satisfied with anesthetic care.
[2022-10-02] MEDS: MULTIVIT/MIN/PREN/FOL AC/IRON TABLET 1 TAB PO (08:53)
[2022-10-02] MEDS: DOCUSATE SODIUM 100 MG CAPSULE PO (08:53)
--- NOTE | 2022-10-02 14:23 | PC.NURSE ---
1345 Pt left on a 4-6 hour pass to visit infant @ [facility]. Her Mother drove her.
[2022-10-03] MEDS: ACETAMINOPHEN 325 MG TABLET 650 MG PO ×2 (02:06→09:45)
[2022-10-03] MEDS: MULTIVIT/MIN/PREN/FOL AC/IRON TABLET 1 TAB PO (07:28)
[2022-10-03] MEDS: IBUPROFEN 600 MG TABLET PO (07:28)
[2022-10-03] MEDS: TETANUS,DIPHTHERIA,AC PERTUSSIS ADULT (0.5 ML) BOOSTRIX IM (07:29)
[2022-10-03 08:00] VITALS: BP 119/76; PULSE 91; RESP 16; TEMP 36.4; O2SAT 100
[2022-10-03 09:21] LABS: Rapid Plasma Reagin Non-Reactive (NonReactive)
--- NOTE | 2022-10-24 09:14 | PM.OBDSVD ---
DS: Admitting Diagnosis Discharge Date 10/03/22 Admitting Diagnosis Labor DS: Discharge Diagnosis Discharge Diagnosis Plan vaginal after successful delivered OB - DS: Summary Hospital Course Hospital Course: Patient was admitted on 10/01/2022 for active labor. She had been augmented with assisted rupture of membranes. She had a successful vaginal delivery after . she did well. Her baby did get transferred she did get a pass to see the baby. On post day 2 she was doing well and was discharged to home. Her lochia was minimal she had adequate pain control. OB Procedures : Ultrasound OB Procedures Intrapartum: OB Procedures: : None Peripartum Data Infant Delivery Method: Natural Vaginal ( ) Episiotomy description: Left Mediolateral complications: none Status at Discharge Functional status at discharge: independent ambulation Time Spent with Patient Time attestation: Total time spent providing and/or coordinating discharge services: Exam Const: General: cooperative Orientation/consciousness: oriented to person, oriented to place and oriented to time HENMT: Face/Nose/Sinus: Normal external nose present Eyes: General: appearance normal, both eyes and all related structures Resp: Effort & Inspection: normal respiratory effort GI: Inspection: normal to inspection Skin: General skin exam: normal color Neuro: General: oriented to person, oriented to place and oriented to time Extrem: General: normal to inspection and no calf tenderness Psych: Appearance: grossly normal Mental Status: mental status grossly normal Discharge Plan Discharge Attending physician on discharge: [place] Consulting providers: Paola Charles ; Jacki Lambert ; Randy Stacy Discharging Clinician: [place] Patient Disposition: Home, Self-Care Activity: may shower and pelvic rest Diet: regular Discharge Instructions: Pelvic rest for 4-6 weeks. May take over the counter Ibuprofen or Tylenol for pain. Call if saturating more than a pad an hour, leg redness, pain and swelling, temperature>100.4. No strenuous activity. Education: Mom and Baby Guide Given to: Mother Follow-Up: Call your delivering provider's office for an appointment to be seen in: 2-3 Weeks BREAST CARE: * Wear a snug supportive bra. * For engorgement discomfort: Breast Feeding: * Apply warm moist washcloths * Express milk as needed to relieve engorgement * Wear loose clothing * For sore nipples: * Identify correct latch-on * Apply warm moist washcloths before and after nursing * Air dry nipples after nursing * May apply Lansinoh cream to nipples EPISIOTOMY/PERINEAL CARE: * Until bleeding stops, use your juani bottle after urinating * Change your pad frequently throughout the day * You may take sitz baths several times a day (fill your bathtub with warm water and soak for 20 minutes.) Do NOT bathe in the water * No tub baths until seen by your physician - You may shower ACTIVITY: * Rest as much as possible. * Do not exercise or lift anything heavier than your baby (such as laundry or other children.) * Avoid stairs or driving as much as possible. * Do not put anything into the vagina. No douching, tampons, or sexual activity until seen by physician. NOTIFY PHYSICIAN IF YOU HAVE ANY QUESTIONS OR IF ANY OF THE FOLLOWING SYMPTOMS OCCUR: * If your episiotomy becomes red, swollen, or more painful than what you have experienced in the hospital. * If your vaginal bleeding becomes foul smelling. * If your vaginal bleeding becomes more heavy than a period or if your bleeding changes from pink to bright red. However, you may pass an occasional walnut-sized clot once or twice for the first week . * If you experience a sharp, shooting pain in you calv
== END 2022-10-03 10:40 | disposition home or self-care (01) | DRG 807 ==
LOC: ANHLDR 11:48 → ANHOB2 10-02 02:17
PROVIDERS: Admitting Provider Obstetrics & Gynecology; PCP Family Medicine; Visit Provider Obstetrics & Gynecology
DX: O34.219 Maternal care for unspecified type scar from previous cesarean delivery (principal); Z37.0 Single live birth; O77.0 Labor and delivery complicated by meconium in amniotic fluid; O76 Abnormality in fetal heart rate and rhythm complicating labor and delivery; O71.82 Other specified trauma to perineum and vulva; O69.3XX0 Labor and delivery complicated by short cord, not applicable or unspecified; Z3A.39 39 weeks gestation of pregnancy
CPT/HCPCS: 36415; 85014; 85018; 85025; 86592; 86850; 86900; 86901; 90715; A9270; J2405; J2590; J2795; J7120

== ENCOUNTER 2024-06-26 09:46 | Outpatient (CLI) | payer OTHER, SELFPAY ==
--- NOTE | ~2024-06-26 | US_ITS ---
Pelvic ultrasound. Clinical History: First trimester , amenorrhea Technique: Realtime transabdominal and transvaginal scanning of the pelvis was performed. Color flow Doppler and Doppler spectral analysis were performed. Findings: The uterus is anteverted, and contains an intrauterine gestation. [place]-rump length of 1.4 cm corresponds to an estimated gestational age of 7 weeks 5 days. heart rate is 155 bpm.. The right ovary measures 2.3 x 3.5 x 2.1 cm. No significant right ovarian or adnexal mass is seen. The left ovary is not visualized. No significant left ovarian or adnexal mass is seen. There is no evidence of free fluid in the cul de sac. Impression: Live intrauterine gestation, with estimated gestational age of 7 weeks 5 days. heart rate is 15 5 bpm. Reviewed, dictated and finalized at [facility]. Impression: Live intrauterine gestation, with estimated gestational age of 7 weeks 5 days. heart rate is 155 bpm.
== END 2024-06-26 09:47 | disposition home or self-care (01) ==
LOC: MICIMG 09:46
PROVIDERS: PCP Nurse Practitioner Family; Visit Provider Nurse Practitioner Family
DX: N91.2 Amenorrhea, unspecified (principal)
CPT/HCPCS: 76801; 76817

== ENCOUNTER 2024-07-03 13:47 | Outpatient (CLI) | payer OTHER, SELFPAY ==
--- NOTE | ~2024-07-03 | US_ITS ---
EXAMINATION: US OB <=14 wk fetus w TV DATE: 07/03/2024 15:44 CDT INDICATION: Amenorrhea COMPARISON: 06/26/2024 TECHNIQUE: Real-time transabdominal and transvaginal obstetric ultrasound. FINDINGS: Last menstrual period is given 04/24/2024 5 para 2 Estimated date of delivery by last menstrual period is 01/29/2025 The uterus measures 9.3 x 5.2 x 7.2 cm. A gestational sac is identified within the uterus, to the right of midline. A pole is identified, with a crown-rump length that measures 2.1 cm, corresponding to an approx imate gestational age of 8 weeks and 5 days. cardiac activity is identified at a rate of 167 bpm. The right ovary measures 2.9 x 1.4 x 1.4 cm. The left ovary measures 3.0 x 2.2 x 1.6 cm. Estimated date of delivery by ultrasound is 02/07/2025 IMPRESSION: Single intrauterine gestation with an approximate gestational age of 8 weeks and 5 days, with c ardiac activity identified. Reviewed, dictated and finalized at location A. IMPRESSION: Single intrauterine gestation with an approximate gestational age of 8 weeks an d 5 days, with cardiac activity identified.
== END 2024-07-03 13:48 | disposition home or self-care (01) ==
LOC: MICIMG 13:47
PROVIDERS: PCP Nurse Practitioner Family; Visit Provider Nurse Practitioner Family
DX: O36.80X0 Pregnancy with inconclusive fetal viability, not applicable or unspecified (principal); Z3A.00 Weeks of gestation of pregnancy not specified
CPT/HCPCS: 76801; 76817

== ENCOUNTER 2024-12-24 18:53 | Observation (INO) | payer OTHER, SELFPAY ==
[2024-12-24] VITALS (65 sets, daily range): BP systolic 111–126; BP diastolic 59–72; PULSE 25–250; RESP 16; TEMP 36.2–37.3; O2SAT 78–100; BMI 32.8
--- NOTE | ~2024-12-24 | US_ITS ---
CORRECTED REPORT [place] description [place] [facility] [place] This report was recreated on 12/25/24. Original report was EXAMINATION: US OB limited w BPP DATE: 12/25/2024 14:12 CDT INDICATION: Vaginal bleeding TECHNIQUE: Real-time transabdominal obstetric ultrasound. FINDINGS: Ultrasound dated 12/25/2024 There is a single living fetus in vertex presentation. The placenta is anterior without placenta previa. cardiac activity and movement is noted with a heart rate of 150 beats per minute. Biophysical profile: breathin of 2 movement: 2 of 2 tone: 2 of 2 Amniotic flud pocket: 2 of 2 Total score: 6 of 8 IMPRESSION: 1. Single living intrauterine in vertex presentation. 2: Total biophysical profile score of 6/8. Reviewed, dictated and finalized at location A. MTDD
--- NOTE | ~2024-12-24 | US_ITS ---
US OB limited 12/25/2024 07:36 Indication: Placenta check Procedure: High-resolution Limited obstetrical ultrasound Comparison: 07/03/2024 Findings: There is a single living intrauterine in vertex presentation. heart rate 14 7 BPM. Placenta is anterior without evidence for previa. The placenta is grossly normal, without sugg estion of placenta abruption. However, ultrasound is not diagnostic of abruption since acute hemorrh age can be isoechoic to be placenta. Amniotic fluid is subjectively normal. Impression: 1: Single living intrauterine in vertex presentation. 2: Anterior placenta without previa. Reviewed, dictated and finalized at location A. Impression: 1: Single living intrauterine in vertex presentation. 2: Anterior placenta without previa.
--- NOTE | 2024-12-24 18:53 | PC.NURSE ---
Pt arrives to unit with vaginal spotting started at 1814, one quarter sized spot of blood on underwear, new pads and panties to the perineum.
--- OUTSIDE RECORDS SUMMARY | 2024-12-24 18:57 | XMS_ITS | Clinical Summary ---
Author Organization [facility] Address [address] [place] [phone] Phone Care Team Providers Care Pool Cleaner Name Role Phone Unavailable Primary Care Provider Unavailabl e Encounters Date Type Department Care Team Description 11/30/2024 External Device Data STL ABSTRACTION Provider, Abstract 11/29/2024 External Device Data STL ABSTRACTION Provider, Abstract 11/27/2024 External Device Data STL ABSTRACTION Provider, Abstract 11/13/2024 External Device Data STL ABSTRACTION Provider, Abstract 10/22/2024 External Device Data STL ABSTRACTION Provider, Abstract 10/17/2024 External Device Data STL ABSTRACTION Provider, Abstract 10/08/2024 External Device Data STL ABSTRACTION Provider, Abstract 09/26/2024 8:57 AM LEATHER PRODUCTS SUPERVISOR - 09/26/2024 11:59 PM LEATHER PRODUCTS SUPERVISOR Hospital Encounter [facility] [place] [address] [place] [address] Los Charles MD Discharge Disposition: Home or Self Care from Last 3 Months Social History Tobacco Use Types Packs/Day Years Used Date Smoking Tobacco: Never Assessed Comments Unknown Sex and Gender Information Value Date Recorded Sex Assigned at Not on file Legal Sex Female 2:05 PM CDT Gender Identity Not on file Sexual Orientation Not on file Plan of Treatment Health Maintenance Due Date Last Done Comments DTAP/TDAP/TD VACCINES (1 - Tdap) 12/03/2011 HEPATITIS B VACCINES (1 of 3 - 19+ 3-dose series) 12/03/2011 PAP SMEAR 2013 CERVICAL CANCER SCREENING 2022 HPV/Cotest (30-65) 2022 PAP SMEAR 2022 INFLUENZA VACCINE Completed 06/21/2024, , 07/15/2022, Additional history exists HPV VACCINES Aged Out No longer eligi ble based on patient's age to complete this topic PNEUMOCOCCAL VACCINE 0-49 YEARS Aged Out No longer eligible based on patient's age to complete this topic Procedures Procedure Name Priority Date/Time Associated Diagnosis Comments US OB 14+ WKS SINGLE GEST Routine 09/26/2024 10:04 AM LEATHER PRODUCTS SUPERVISOR screening for malformation using ultrasonics from Last 3 Months Results * US OB 14+ WKS SINGLE GEST (09/26/2024 10:04 AM LEATHER PRODUCTS SUPERVISOR) Anatomical Region Laterality Modality Pelvis Ultrasound 09/26/2024 9:10 AM LEATHER PRODUCTS SUPERVISOR Narrative 09/26/2024 10:12 AM LEATHER PRODUCTS SUPERVISOR STL BASIC ----- Pat. Name: ALYSIA MCKNIGHT Study Date: 09/26/2024 9:10am Pat. NO: [id number] Referring MD: LOS CHARLES MD Site: [place] Financial Agent: Che Muñiz RDMS : 1990 Age: 33 ----- INDICATION ----- Anatomy Survey no genetics with History of Labor (PTL) 37 weeks. pt states placental issue CODING ----- Diagnoses Z3A.20: Weeks of gestation O09.212: Supervision of with history of pre-term labor Z36.3: Encounter for screening for malformations Procedures 41285: Ultrasound, uterus, real time with image documentation, and maternal evaluation, after first trimester (> or = 14 weeks 0 days), transabdominal approach; single or first gestation HISTORY ----- OB History 4. Para 1 Samuels children born living (T) 1. Miscarriages 2 T1A2L1 MATERNAL ASSESSMENT ----- Physical Exam Weight 79 kg. BMI 30.82 kg/m METHOD ----- Transabdominal ultrasound examination ----- Samuels . Number of fetuses: 1 DATING ----- Cycle: regular cycle Method of dating: based on stated CATIE GA by prior assessment 20 w + 6 d CATIE by prior assessment: 02/07/2025 Ultrasound examination on: 09/26/2024 GA by U/S based upon: AC, BPD, EFW, Femur, HC GA by U/S 21 w + 1 d CATIE by U/S: 02/05/2025 Assigned: based on stated CATIE, selected on 09/26/2024 Assigned GA 20 w + 6 d Assigned CATIE: 02/07/2025 BIOMETRY ----- BPD 50.5 mm 21w 2d 67% Hadlock OFD 65.0 mm 22w 0d 86% Rochelle HC 186.0 mm 21w 0d 44% Hadlock Cerebellum tr 22.8 mm 22w 0d 76% Amaya Nuchal fold 4.7 mm AC 162.3 mm 21w 2d 59% Hadlock Femur 34.4 mm 20w 6d 40% Hadlock Humerus 33.0 mm 21w 1d 57% Rochelle HC / AC 1.15 39% Nicolaides Weight Calculation: EFW 398 g 21w 0d 57% Hadlock EFW (lb,oz) 0 lb 14 oz EFW by Hadlock ([id number]) Head / Face / Neck Biometry: Multimedia Designer 6.6 mm CM 3.0 mm 2% Nicolaides Outer IOD 31.0 mm 20w 0d 11% Rochelle Extremities / Bony Struc Biometry: FL / BPD 0.68 17% Hadlock FL / HC 0.18 13% Hadlock FL / AC 0.21 22% Hadlock GENERAL EVALUATION ----- Cardiac activity present. FHR 143 bpm. movements: visualized. Presentation: transverse Placenta: Placental site: anterior Umbilical cord: Cord vessels: 3 vessel cord. Insertion site: placental insertion: normal Amniotic fluid: Amount of AF: normal amount. MVP 4.9 cm ANATOMY ----- The following structures appear normal: Head / Neck Cranium. Lateral ventricles. Choroid plexus. Midline falx. Cavum septi pellucidi. Cerebellum. Cisterna magna. Nuchal fold. Face Lips. Profile. Nose. Palate. Orbits. Heart / Thorax 4-chamber view. RVOT view. LVOT view. 3-vessel view. 3-teaqsy-enrvvue view. Situs. Ductal arch view. Superior vena cava. Inferior vena cava. High short axis view. Cardiac rhythm. Diaphragm. Abdomen Abdominal wall. Stomach. Kidneys. Bladder. Spine Cervical spine. Thoracic spine. Lumbar spine. Sacral spine. Extremities / Arms. Right hand. Left hand. Legs. Right foot. Left foot. Skeleton MATERNAL STRUCTURES ----- Cervix Visualized Approach - Transabdominal: Cervical length 44.0 mm Right Ovary Not visualized Left Ovary Not visualized GROWTH OVERVIEW ----- Exam date GA BPD (mm) HC (mm) AC (mm) FL (mm) HL (mm) EFW (g) 09/26/2024 20w 6d 50.5 67% 186.0 44% 162.3 59% 34.4 40% 33.0 57% 398 57% COMMENT ----- Patient's name and date of were confirmed by the water control station engineer prior to the exam IMPRESSION ----- 1. Single living fetus with a gestational age of 20w 6d based on the reported clinical dates. 2. Current growth parameters are consistent with the stated EDC. The fetus is appropriate for gestational age in size at the 57% (398 g). 3. Basic anatomic survey is unremarkable. No gross structural abnormalities noted. No sonographic markers for aneuploidy noted. 4. Amniotic fluid volume is normal for gestational age. 5. The cervical length is within normal range for gestational age. 6. The right and left ovary are not well visualized. 7. Placenta is anterior . No previa/not low-lying. The placenta cord insertion is normal. Recommendations: - Further ultrasounds based on clinical indication. - Recommend interval third trimester growth and anatomy at 32 weeks. Thank you for allowing us to participate in the care of this patient. Procedure Note Ro Chua MD - 09/26/2024 STL BASIC ----- PatShirin Name:Los MCKNIGHT Date:09/26/2024 9:10am Pat. NO: [id number] MD:LOS CHARLES [facility]Che Muñiz RDMS :1990Age:33 ----- INDICATION ----- Anatomy Survey no genetics with History of Labor (PTL) 37 weeks. pt statesplacental issue CODING ----- Diagnoses Z3A.20: Weeks of gestation O09.212: Supervision of with history ofpre-term labor Z36.3: [facility] 53942: Ultrasound, uterus, real time withimage documentation, and maternal evaluation, after first trimester (> or = 14 weeks 0 days),transabdominal approach; single or first gestation HISTORY ----- OB History 4. Para 1 Samuels children born living (T) 1. Miscarriages2 T1A2L1 MATERNAL ASSESSMENT ----- Physical Exam Weight 79 kg. BMI 30.82 kg/m METHOD ----- Transabdominal ultrasound examination ----- Samuels . Number of fetuses: 1 DATING ----- Cycle:regular cycle Method of dating:based on stated CATIE GA by prior [id number] w + 6 d CATIE by prior assessment:02/07/2025 Ultrasound examination on:09/26/2024 GA by U/S based upon:AC, BPD, EFW, Femur, HC GA by U/S21 w + 1 d CATIE by U/S:02/05/2025 Assigned:based on stated CATIE, selected on 09/26/2024 Assigned GA20 w + 6 d Assigned CATIE:02/07/2025 BIOMETRY ----- BPD 50.5 mm 21w 2d67% Hadlock OFD 65.0 mm 22w 0d86% Rochelle HC 186.0 mm 21w 0d44% Hadlock Cerebellum tr 22.8 mm 22w 0d76% Amaya Nuchal fold 4.7 mm AC 162.3 mm 21w 2d59% Hadlock Femur 34.4 mm 20w 6d40% Hadlock Humerus 33.0 mm 21w 1d57% Rochelle HC / AC 1.15 39%Nicolaides Weight Calculation: EFW 398 g 21w 0d 57%Hadlock EFW (lb,oz) 0 lb 14 oz EFW by Hadlock ([id number]) Head / Face / Neck Biometry: Multimedia Designer 6.6 mm CM 3.0 mm 2%Irma Outer IOD 31.0 mm 20w 0d 11%Rochelle Extremities / Bony Struc Biometry: FL / BPD 0.68 17%Hadlock FL / HC 0.18 13%Hadlock FL / AC 0.21 22%Hadlock GENERAL EVALUATION ----- Cardiac activity present. FHR 143 bpm. movements: visualized.Presentation: transverse Placenta: Placental site: anterior Umbilical cord: Cord vessels: 3 vessel cord. Insertion site: placentalinsertion: normal Amniotic fluid: Amount of AF: normal amount. MVP 4.9 cm ANATOMY ----- The following structures appear normal: Head / Neck Cranium. Lateral ventricles. Choroid plexus.Midline falx. Cavum septi pellucidi. Cerebellum. Cisterna magna. Nuchal fold. Face Lips. Profile. Nose. Palate. Orbits. Heart / Thorax 4-chamber view. RVOT view. LVOT view. 3-vesselview. 3-tiivcx-bekixnz view. Situs. Ductal arch view. Superior vena cava. Inferior vena cava. High shortaxis view. Cardiac rhythm. Diaphragm. Abdomen Abdominal wall. Stomach. Kidneys. Bladder. Spine Cervical spine. Thoracic spine. Lumbar spine.Sacral spine. Extremities / Arms. Right hand. Left hand. Legs. Right foot.Left foot. Skeleton MATERNAL STRUCTURES ----- Cervix Visualized Approach - Transabdominal: Cervical length 44.0mm Right Ovary Not visualized Left Ovary Not visualized GROWTH OVERVIEW ----- Exam date GA BPD (mm) HC (mm) AC (mm) FL(mm) HL (mm) EFW (g) 09/26/2024 20w 6d 50.5 67% 186.0 44% 162.3 59%34.4 40% 33.0 57% 398 57% COMMENT ----- Patient's name and date of were confirmed by the water control station engineer priorto the exam IMPRESSION ----- 1. Single living fetus with a gestational age of 20w 6d based on thereported clinical dates. 2. Current growth parameters are consistent with the stated EDC. The fetusis appropriate for gestational age in size at the 57% (398 g). 3. Basic anatomic survey is unremarkable. No gross structuralabnormalities noted. No sonographic markers for aneuploidy noted. 4. Amniotic fluid volume is normal for gestational age. 5. The cervical length is within normal range for gestational age. 6. The right and left ovary are not well visualized. 7. Placenta is anterior . No previa/not low-lying. The placenta cordinsertion is normal. Recommendations: - Further ultrasounds based on clinical indication. - Recommend interval third trimester growth and anatomy at 32weeks. Thank you for allowing us to participate in the care of this patient. us Los Charles MD ORDERABLES Final Result from Last 3 Months Insurance [employer] [facility] [place]
--- OUTSIDE RECORDS SUMMARY | 2024-12-24 18:57 | XMS_ITS | Encounter Summary ---
Author Organization [facility] Address [address] [place] [address] Phone Care Team Providers Care Control Room Agent Name Role Phone Matty Barrientos MD Primary Care Provider [phone] Encounter Details Date Type Department Care Team (Latest Contact Info) Description 12/28/2023 Transcribe Orders [facility] [address] [place] [address] Krystina Reyes, GASOLINE TRUCK OPERATOR, DATA SECURITY ADMINISTRATOR [address] [place] [address] Immunity status testing (Primary Dx) Social History Tobacco Use Types Packs/Day Years Used Date Smoking Tobacco: Never Assessed Comments Unknown Sex and Gender Information Value Date Recorded Sex Assigned at Not on file Legal Sex Female 7:07 PM CDT Gender Identity Not on file Sexual Orientation Not on file documented as of this encounter Plan of Treatment Scheduled Orders Name Type Priority Associated Diagnoses Orde r Schedule HEPATITIS B SURFACE ANTIBODY (HBSAB) Lab Routine Immunity status testing Expected: 12/28/2023, Expires: 12/27/2024 documented as of this encounter Visit Diagnoses Diagnosis Immunity status testing- Primary Antibody response examination documented in this encounter Care Teams Control Room Agent Relationship Specialty Start Date End Date Matty Barrientos MD [address] [place] [address] PCP - General Pediatrics 03/27/19 documented as of this encounter
--- OUTSIDE RECORDS SUMMARY | 2024-12-24 18:57 | XMS_ITS | Clinical Summary ---
Author Organization [facility] Address [address] [place] [address] Phone Care Team Providers Care Branch Controller Name Role Phone Matty Barrientos MD Primary Care Provider Immunizations Immunization Administration Dates Next Due Influenza Vaccine, Quadrivalent, PF 06/25,07/15/2022,06/25/2020,2018 Influenza,Split Virus,Trivalent,Injectable,PF 06/21/2024 Social History Tobacco Use Types Packs/Day Years Used Date Smoking Tobacco: Never Assessed Comments Unknown Sex and Gender Information Value Date Recorded Sex Assigned at Not on file Legal Sex Female 7:07 PM CDT Gender Identity Not on file Sexual Orientation Not on file Plan of Treatment Health Maintenance Due Date Last Done Comments Hepatitis B Immunization (1 of 3 - 19+ 3-dose series) 12/03/2011 Pap Smear 2013 Cervical Cancer Screening (CCS) 2022 HPV/Cotest 2022 SARS-COV-2 Immunization (2023- season) 2024 06/08/2021, 05/17/2021 Respiratory Syncytial Virus (RSV) Immunization (Adult) (1 - 1-dose 75+ series) 12/03/2067 Hepatitis C Virus (HCV) Screening Completed 04/17/2020, 10/09/2019 DTaP/Tdap/Td Immunization Discontinued 10/24/2020 TdaP Immunization Completed 10/24/2020 Influenza Immunization Completed , 07/05/2023, 07/15/2022, Additional history exists Meningococcal Immunization (ACWY) Aged Out No longer eligible based on patient's age to complete this topic Pneumococcal Immunization Combined Aged Out No longer eligible based on patient's age to complete this topic Rotavirus Immunization Aged Out No lo nger eligible based on patient's age to complete this topic Procedures Procedure Name Priority Date/Time Associated Diagnosis Comments HEPATITIS C ANTIBODY Routine 04/17/2020 9:40 AM CDT Encounter for supervision of normal , antepartum, unspecified from Last 3 Months or Most Recently Relevant to Health Maintenance Results * HEPATITIS C ANTIBODY (04/17/2020 9:40 AM CDT) hepatitis C antibody 0.32 <1 S/CO 04/17/2020 2:52 PM CDT [facility] Comment: Signal/Cutoff ratio < 0.79 is Nondetected Signal/Cutoff ratio 0.80-0.99 is Grayzone Signal/Cutoff ratio > 0.99 is Detected Supplemental assays are recommended if signal/cutoff ratio is >/=1.00. Signal/cutoff ratio result >/= 5.00 is 97% predictive of positivity for recombinant immunoblot assay (RIBA) and will be reported to the [place] Department of Public Health as required. Blood Venipuncture / Unknown 04/17/2020 9:40 AM CDT 04/17/2020 10:13 AM CDT us Los Charles MD CHEMISTRY ORDERABLES Final R esult [facility] [address] [place] [address], from Last 3 Months or Most Recently Relevant to Health Maintenance Insurance [facility] OAP Care Teams Branch Controller Relationship Specialty Start Date End Date Matty Barrientos MD [address] [place] [address] PCP - General Pediatrics 03/27/19
--- NOTE | 2024-12-24 19:31 | OBADM ---
This patient, Alysia Mcknight, admitted to the OB room OB Post 116 for observation. Patient/family oriented to hospital policies and general routines including ID bracelet, bed and alarms, visiting hours, pain management, procedures, bathroom and other care routines, personal items, smoking policy, room service/diet, and visiting hours. Patient/Family are encouraged to report perceived risks to care and to ask questions if they do not understand what they are told or what they should do.
[2024-12-24 20:03] LABS: Add Urine Microscopic? YES; Appearance Urine Clear (Clear); Bacteria Urine None Seen /hpf; Bilirubin Urine Negative (Negative); Blood Urine 3+ (Negative); Color Urine Yellow (Yellow); Glucose Urine UA Negative (Negative); Ketones Urine Negative (Negative); Leukocyte Esterase Ur Trace LEU/UL (Negative); Nitrate Urine Negative (Negative); Non Pathogenic Casts 0-2; Protein Urine Negative (Negative); RBC Urine 0-2 /hpf (0-2); Specific Grav Ur 1.003 (1.001-1.035); Squamous Epithelial Cell Urine None Seen /hpf (Few); Urobilinogen Urine 0.2 mg/dL (<2.0); WBC Urine 0-5 /hpf (0-3); pH Urine 7.5 (5.0-9.0)
--- NOTE | 2024-12-24 20:04 | PC.NURSE ---
Addendum entered by Trinidad Hidalgo RN 12/25/24 07:31: No bleeding at this time. Original Note: Dr. Villanueva responded to page, update on pt, vaginal spotting starting at 1815, one quarter sized spot on underwear, no bleeding the last hour, blood pressure, tracing, and contractions 1 to 7.5 minutes. Orders received to administer up to two doses of terbutaline 0.25 mg and discharge pt if contractions space out.
[2024-12-24] MEDS: TERBUTALINE SULFATE 1 MG/ML VIAL 0.25 MG SUB-Q ×2 (20:32→21:33)
--- NOTE | 2024-12-24 21:43 | PC.NURSE ---
Dr. Villanueva responded to page, update on pt, tracing, contractions every 2 to 6 minutes, two doses of terbutaline, and no bleeding at this time. Orders received to discharge pt if contractions space out after second terbutaline dose.
--- NOTE | 2024-12-24 22:58 | PC.NURSE ---
Called Dr. Villanueva, update on pt, contractions every 1 to 6 minutes rated 2 out of 10, and no bleeding at this time. Orders received to administer Procardia 30 mg Xl.
[2024-12-24] MEDS: NIFEdipine 30 MG TAB.ER.24 PO (23:14)
[2024-12-25] VITALS (76 sets, daily range): BP systolic 106–121; BP diastolic 59–77; PULSE 80–118; RESP 16–18; TEMP 36.8–37; O2SAT 96–100
--- NOTE | 2024-12-25 04:01 | PC.NURSE ---
Dr. Villanueva responded to page, update on pt, contractions every 2 to 5 minutes rated 2 out of 10, no bleeding at this time, and labs. Orders received to continue to monitor pt and PO hydration.
--- NOTE | 2024-12-25 04:21 | PC.NURSE ---
Notified Dr. Villanueva of pt, no bleeding at this time, contractions every 2 to 5 minutes in a regular pattern. Orders received to perform cervical exam, D5 LR bolus 1000 ml then 125 ml/hr, and ultrasound placenta check in the morning.
--- NOTE | 2024-12-25 04:42 | PC.NURSE ---
Notified Dr. Villanueva on cervical exam and fluid initiation. Orders received to administer Procardia 30 mg Xl.
[2024-12-25] MEDS: DEXTROSE 5%/LACTATED RINGERS 1,000 ML 999 ML IV CONT (04:45)
[2024-12-25] MEDS: NIFEdipine 30 MG TAB.ER.24 PO (04:55)
[2024-12-25] MEDS: DEXTROSE 5%/LACTATED RINGERS 1,000 ML 125 ML IV CONT (05:43)
[2024-12-25] MEDS: TERBUTALINE SULFATE 1 MG/ML VIAL 0.25 MG SUB-Q (09:22)
[2024-12-25] MEDS: BETAMETHASONE SOD PHOS/ACETATE 30 MG/5 ML VIAL 12 MG IM (09:23)
[2024-12-25 09:40] LABS: Basophils Absolute Auto 0.1 K/mm3 (0.0-0.1); Basophils Percent Auto 0.7 % (0.2-1.2); Eosinophils Percent Auto 0.4 % (0-4.4); Hematocrit 31.8 % (37.0-47.0); Immature Granulocyte Absolute 0.67 K/mm3 (0.00-0.031); Immature Granulocyte Percent A 6.1 % (0-0.5); Lymphocytes Absolute Auto 1.71 K/mm3 (0.9-3.2); Lymphocytes Percent Auto 15.7 % (18.3-44.2); Mean Corpuscular HGB Conc 34.6 g/dl (32-36); Mean Corpuscular Hemoglobin 32.8 pg (26-34); Mean Corpuscular Volume 94.9 fl (80-100); Mean Platelet Volume 10.6 fl (7.4-10.4); Monocytes Absolute Auto 0.5 K/mm3 (0.1-0.6); Monocytes Percent Auto 4.6 % (2.6-8.5); Neutrophils Absolute Auto 7.9 K/mm3 (1.3-6.7); Neutrophils Percent Auto 72.5 % (45.5-73.1); Platelet Count Result 151 k/mm3 (150-375); Red Blood Count 3.35 M/mm3 (4.2-5.4); Red Cell Distribution Width 13.2 % (11.5-14.5); White Blood Count 10.9 K/mm3 (4.5-10.0)
[2024-12-25 10:26] LABS: Prothrombin Time 13.2 Seconds (11.1-14.7)
[2024-12-25 10:27] LABS: Partial Thromboplastin Time 25.3 Seconds (22.3-36.8)
[2024-12-25 10:35] LABS: Fibrinogen 324 mg/dl (215-510)
--- NOTE | 2024-12-25 12:51 | PM.IMHP ---
H&P: HPI History of Present Illness Date/Time: 12/25/24 12:51 Chief Complaint: Spotting Narrative: 34 y/o P2 at 33 weeks presented with c/o spotting which she noticed at the end of her work shift. She denied feeling contractions, she denied LOF. On L and D she was having frequent contractions and irritability, requiring terb and then Procardia x 2. She had ultrasound on 12/25 and it was normal. She had subsequent isolated spontaneous variable decelerations. Her cervix unchanged. Exam on am 12/25 was ext os ft/thick/-3. She had abruption labs performed and celestone administered with extended monitoring. Review of Systems Review of Systems: All systems reviewed & are unremarkable except as noted in HPI and below Constitutional: Constitutional: Reports no additional constitutional complaints and Denies headache(s) Eyes: Eyes: Denies spots in vision ENT: Reports system reviewed and no additional complaints, except as documented and Denies headache(s) Cardiovascular: Cardiovascular: Denies chest pain and Denies dyspnea Respiratory: Respiratory: Denies dyspnea Gastrointestinal: Gastrointestinal: Reports no additional gastrointestinal complaints Genitourinary: Genitourinary: Reports amenorrhea Musculoskeletal: Musculoskeletal: Reports no additional musculoskeletal complaints Integumentary/Breasts: Skin/Breast: Denies breast mass and Denies rash Neurologic: Denies headache(s) Psychiatric: Psychiatric: Reports no additional psychiatric complaints [facility] Past Medical History Medical History Missed Surgical History Surgical History Previous section [place] teeth removed Family History Family History Grandparent Diabetes mellitus Hypertension Father Family history of elevated blood lipids Hypertension Prostate carcinoma Cerebrovascular accident Social History Social History Smoking status: Never smoker Second hand tobacco smoke exposure: No Alcohol intake: current Substance use: never Do You Feel Safe in your Home?: Yes Lack of Transportation: No Lack of Food: Never True Current Housing: I Have Housing Concerned About Future Housing: No Difficulty Paying Gas/Electric Bills: No Difficulty Paying for Meds: No Currently Unemployed: No Education: Bachelor's Degree Difficulty w/ Childcare or Family Care: No Spiritual care concerns: No Meds Home Medications and Allergies Home Medications ?Medication ?Instructions ?Recorded ?Confirmed ?Type prenat.vits,darrin,xgf-pfbd-zotim 1 tablet PO DAILY 03/01/22 12/24/24 History Allergies Allergy/AdvReac Type Severity Reaction Status Date / Time No Known Allergies Allergy Verified 12/24/24 23:15 Vital Signs Vital Signs - 24 hr 12/24/24 19:10 12/24/24 19:10 12/24/24 19:15 Temperature Pulse Rate Respiratory Rate Blood Pressure Pulse Oximetry 100 100 Oxygen Delivery Room Air 12/24/24 19:17 12/24/24 19:20 12/24/24 19:24 Temperature Pulse Rate 84 Respiratory Rate Blood Pressure 112/67 Pulse Oximetry 100 100 Oxygen Delivery 12/24/24 19:29 12/24/24 19:30 12/24/24 19:34 Temperature Pulse Rate 86 Respiratory Rate Blood Pressure 114/72 Pulse Oximetry 100 100 Oxygen Delivery 12/24/24 19:39 12/24/24 19:44 12/24/24 19:45 Temperature Pulse Rate 85 Respiratory Rate Blood Pressure 113/69 Pulse Oximetry 100 100 Oxygen Delivery 12/24/24 19:49 12/24/24 19:52 12/24/24 19:56 Temperature 99.2 F Pulse Rate Respiratory Rate Blood Pressure Pulse Oximetry 99 100 Oxygen Delivery 12/24/24 19:57 12/24/24 19:59 12/24/24 20:00 Temperature Pulse Rate 76 Respiratory Rate Blood Pressure 112/67 Pulse Oximetry 100 100 Oxygen Delivery 12/24/24 20:02 12/24/24 20:05 12/24/24 20:05 Temperature Pulse Rate Respiratory Rate Blood Pressure Pulse Oximetry 100 100 100 Oxygen Delivery 12/24/24 20:10 12/24/24 20:15 12/24/24 20:20 Temperature Pulse Rate Respiratory Rate Blood Pressure Pulse Oximetry 100 100 100 Oxygen Delivery 12/24/24 20:25 12/24/24 20:30 12/24/24 20:35 Temperature Pulse Rate 78 Respiratory Rate Blood Pressure 111/67 Pulse Oximetry 99 100 99 Oxygen Delivery 12/24/24 20:40 12/24/24 20:45 12/24/24 20:46 Temperature Pulse Rate Respiratory Rate Blood Pressure Pulse Oximetry 100 100 100 Oxygen Delivery 12/24/24 20:51 12/24/24 20:59 12/24/24 20:59 Temperature Pulse Rate Respiratory Rate Blood Pressure Pulse Oximetry 99 79 L 78 L Oxygen Delivery 12/24/24 21:00 12/24/24 21:05 12/24/24 21:10 Temperature Pulse Rate 82 Respiratory Rate Blood Pressure 126/59 L Pulse Oximetry 85 L 100 99 Oxygen Delivery 12/24/24 21:15 12/24/24 21:20 12/24/24 21:22 Temperature Pulse Rate Respiratory Rate Blood Pressure Pulse Oximetry 100 99 100 Oxygen Delivery 12/24/24 21:27 12/24/24 21:31 12/24/24 21:32 Temperature Pulse Rate 91 Respiratory Rate Blood Pressure 117/63 Pulse Oximetry 100 100 Oxygen Delivery 12/24/24 21:37 12/24/24 21:42 12/24/24 21:47 Temperature Pulse Rate Respiratory Rate Blood Pressure Pulse Oximetry 99 99 100 Oxygen Delivery 12/24/24 21:52 12/24/24 21:57 12/24/24 22:00 Temperature Pulse Rate 89 Respiratory Rate Blood Pressure 114/61 Pulse Oximetry 99 100 Oxygen Delivery 12/24/24 22:02 12/24/24 22:07 12/24/24 22:30 Temperature Pulse Rate 92 Respiratory Rate Blood Pressure 119/66 Pulse Oximetry 99 99 Oxygen Delivery 12/24/24 22:47 12/24/24 22:52 12/24/24 22:57 Temperature Pulse Rate Respiratory Rate Blood Pressure Pulse Oximetry 100 99 97 Oxygen Delivery 12/24/24 23:00 12/24/24 23:02 12/24/24 23:07 Temperature Pulse Rate 96 Respiratory Rate Blood Pressure 111/63 Pulse Oximetry 96 96 Oxygen Delivery 12/24/24 23:09 12/24/24 23:09 12/24/24 23:14 Temperature 97.2 F L 97.2 F L Pulse Rate 92 Respiratory Rate 16 Blood Pressure 111/63 Pulse Oximetry 81 L 96 99 Oxygen Delivery 12/24/24 23:19 12/24/24 23:24 12/24/24 23:29 Temperature Pulse Rate Respiratory Rate Blood Pressure Pulse Oximetry 98 98 98 Oxygen Delivery 12/24/24 23:34 12/24/24 23:41 12/24/24 23:42 Temperature Pulse Rate Respiratory Rate Blood Pressure Pulse Oximetry 96 89 L 99 Oxygen Delivery 12/24/24 23:47 12/24/24 23:52 12/24/24 23:57 Temperature Pulse Rate Respiratory Rate Blood Pressure Pulse Oximetry 97 97 98 Oxygen Delivery 12/25/24 00:02 12/25/24 00:07 12/25/24 00:12 Temperature Pulse Rate Respiratory Rate Blood Pressure Pulse Oximetry 97 98 97 Oxygen Delivery 12/25/24 00:17 12/25/24 00:22 12/25/24 00:27 Temperature Pulse Rate Respiratory Rate Blood Pressure Pulse Oximetry 97 97 97 Oxygen Delivery 12/25/24 00:32 12/25/24 00:37 12/25/24 00:42 Temperature Pulse Rate Respiratory Rate Blood Pressure Pulse Oximetry 97 97 97 Oxygen Delivery 12/25/24 00:47 12/25/24 00:52 12/25/24 00:57 Temperature Pulse Rate Respiratory Rate Blood Pressure Pulse Oximetry 98 99 97 Oxygen Delivery 12/25/24 01:02 12/25/24 01:07 12/25/24 01:12 Temperature Pulse Rate Respiratory Rate Blood Pressure Pulse Oximetry 98 98 98 Oxygen Delivery 12/25/24 01:17 12/25/24 01:22 12/25/24 01:23 Temperature Pulse Rate Respiratory Rate Blood Pressure Pulse Oximetry 98 98 98 Oxygen Delivery 12/25/24 01:28 12/25/24 01:33 12/25/24 01:38 Temperature Pulse Rate Respiratory Rate Blood Pressure Pulse Oximetry 96 96 97 Oxygen Delivery 12/25/24 01:43 12/25/24 01:48 12/25/24 01:53 Temperature Pulse Rate Respiratory Rate Blood Pressure Pulse Oximetry 97 97 97 Oxygen Delivery 12/25/24 01:58 12/25/24 02:03 12/25/24 02:08 Temperature Pulse Rate Respiratory Rate Blood Pressure Pulse Oximetry 97 97 97 Oxygen Delivery 12/25/24 02:13 12/25/24 02:18 12/25/24 02:23 Temperature Pulse Rate Respiratory Rate Blood Pressure Pulse Oximetry 97 97 97 Oxygen Delivery 12/25/24 02:28 12/25/24 02:29 12/25/24 02:34 Temperature Pulse Rate Respiratory Rate Blood Pressure Pulse Oximetry 99 98 99 Oxygen Delivery 12/25/24 02:39 12/25/24 02:41 12/25/24 02:51 Temperature Pulse Rate Respiratory Rate Blood Pressure Pulse Oximetry 98 98 97 Oxygen Delivery 12/25/24 02:52 12/25/24 02:55 12/25/24 03:00 Temperature Pulse Rate Respiratory Rate Blood Pressure Pulse Oximetry 100 100 99 Oxygen Delivery 12/25/24 03:01 12/25/24 03:01 12/25/24 03:05 Temperature 98.3 F 98.3 F Pulse Rate 93 99 Respiratory Rate 18 Blood Pressure 113/68 113/68 Pulse Oximetry 98 98 Oxygen Delivery 12/25/24 03:10 12/25/24 03:15 12/25/24 03:20 Temperature Pulse Rate Respiratory Rate Blood Pressure Pulse Oximetry 98 100 99 Oxygen Delivery 12/25/24 03:25 12/25/24 03:30 12/25/24 03:36 Temperature Pulse Rate Respiratory Rate Blood Pressure Pulse Oximetry 100 100 97 Oxygen Delivery 12/25/24 03:37 12/25/24 03:42 12/25/24 03:47 Temperature Pulse Rate Respiratory Rate Blood Pressure Pulse Oximetry 96 99 98 Oxygen Delivery 12/25/24 03:52 12/25/24 03:57 12/25/24 04:02 Temperature Pulse Rate Respiratory Rate Blood Pressure Pulse Oximetry 98 98 97 Oxygen Delivery 12/25/24 04:07 12/25/24 04:12 12/25/24 04:17 Temperature Pulse Rate Respiratory Rate Blood Pressure Pulse Oximetry 98 97 97 Oxygen Delivery 12/25/24 04:22 12/25/24 04:27 12/25/24 04:28 Temperature Pulse Rate Respiratory Rate Blood Pressure Pulse Oximetry 98 100 96 Oxygen Delivery 12/25/24 04:33 12/25/24 04:54 12/25/24 06:27 Temperature 98.3 F Pulse Rate 84 106 H Respiratory Rate 16 Blood Pressure 112/61 106/59 L Pulse Oximetry 97 100 Oxygen Delivery 12/25/24 06:28 12/25/24 07:42 12/25/24 07:45 Temperature Pulse Rate 90 114 H Respiratory Rate Blood Pressure 110/65 121/77 Pulse Oximetry 98 Oxygen Delivery 12/25/24 08:00 12/25/24 08:15 12/25/24 08:57 Temperature Pulse Rate 88 86 Respiratory Rate Blood Pressure 111/62 111/67 Pulse Oximetry 100 Oxygen Delivery 12/25/24 09:02 12/25/24 09:07 12/25/24 09:12 Temperature Pulse Rate Respiratory Rate Blood Pressure Pulse Oximetry 100 100 100 Oxygen Delivery 12/25/24 09:17 12/25/24 09:22 12/25/24 09:27 Temperature Pulse Rate Respiratory Rate Blood Pressure Pulse Oximetry 99 99 98 Oxygen Delivery 12/25/24 09:32 Temperature Pulse Rate Respiratory Rate Blood Pressure Pulse Oximetry 99 Oxygen Delivery Exam Const: General: no acute distress Eyes: General: appearance normal, both eyes and all related structures Resp: Effort & Inspection: normal respiratory effort Cardio: Rate: regular rate GI: Other: Gravid no fundal tenderness no right upper quadrant pain Skin: General skin exam: no rashes or lesions noted Neuro: Cognition (Neuro): normal cognition Extrem: General: normal to inspection Psych: Mental Status: mental status grossly normal H&P: Results Labs Labs: Short CBC 12/25/24 Range/Units 09:17 WBC 10.9 H (4.5-10.0) K/mm3 Hgb 11.0 L (12.0-15.0) g/dL Hct 31.8 L (37.0-47.0) % Plt Count 151 (150-375) k/mm3 Urine 12/24/24 Range/Units 19:25 Urine Color Yellow (Yellow) Urine Appearance Clear (Clear) Urine pH 7.5 (5.0-9.0) Ur Specific [place] 1.003 (1.001-1.035) Urine Protein Negative (Negative) mg/dL Urine Glucose (UA) Negative (Negative) mg/dL Assessment and Plan Assessment and plan (1) Spotting complicating , third trimester: Code(s): O26.853 - Spotting complicating , third trimester Status: Acute Assessment and Plan: No active bleeding. Abruption labs normal. (2) contractions: Code(s): O47.00 - False labor before 37 completed weeks of gestation, unspecified trimester Status: Acute Assessment and Plan: No labor. monitoring. Oral tocolytic therapy. (3) heart deceleration: Status: Acute Assessment and Plan: Isolated. Extended monitoring. BPP.
--- NOTE | 2025-01-22 07:53 | P.PNOB_ITS ---
OB - Triage/Final Diagnosis Visit Information Comments/Additional reasons for admission: I have assessed the risk for this patient, Alysia Mcknight, and determined that she would benefit from observation care. Evaluation Laboratory results: Laboratory Tests 12/24/24 12/25/24 12/25/24 19:25 09:17 10:09 WBC 10.9 H RBC 3.35 L Hgb 11.0 L Hct 31.8 L MCV 94.9 MCH 32.8 MCHC 34.6 RDW 13.2 Plt Count 151 MPV 10.6 H Immature Gran % (Auto) 6.1 H Neut % (Auto) 72.5 Lymph % (Auto) 15.7 L [place] % (Auto) 4.6 Eos % (Auto) 0.4 Baso % (Auto) 0.7 Lymph # (Auto) 1.71 [place] # (Auto) 0.5 Eos # (Auto) 0.0 Baso # (Auto) 0.1 Abs Immat Gran (auto) 0.67 H Absolute Neuts (auto) 7.9 H Absolute Nucleated RBC 0.000 Nucleated RBC % 0.0 PT 13.2 INR 1.0 APTT 25.3 Fibrinogen 324 Urine Color Yellow Urine Appearance Clear Urine pH 7.5 Ur Specific [place] 1.003 Urine Protein Negative Urine Glucose (UA) Negative Urine Ketones Negative Ur Blood (Man) 3+ H Urine Nitrate Negative Urine Bilirubin Negative Urine Urobilinogen 0.2 Leukocyte Esterase Rfl Trace H Urine RBC 0-2 Urine WBC 0-5 Ur Squamous Epith Cells None seen Urine Bacteria None seen Urine Casts 0-2 Blood Type O Positive Antibody Screen Positive Antibody Identification Anti-M Antigen Identification M Antigen - NEGATIVE ENRIQUE, IgG Interpret Not Performed ENRIQUE, Poly Interpret Negative ENRIQUE, Complement Interp Not Performed KB Hemoglobin Negative Final Diagnosis (1) Third trimester bleeding: Code(s): O46.93 - Antepartum hemorrhage, unspecified, third trimester Status: Acute
== END 2024-12-25 15:15 | disposition home or self-care (01) ==
PROVIDERS: Admitting Provider Obstetrics & Gynecology; Visit Provider Obstetrics & Gynecology
DX: O46.93 Antepartum hemorrhage, unspecified, third trimester (principal); Z3A.33 33 weeks gestation of pregnancy
CPT/HCPCS: 36415; 76815; 76819; 81001; 85025; 85384; 85460; 85610; 85730; 86850; 86870; 86880; 86900; 86901; 86902; 86905; 86971; 96360; 96372; A9270; G0378; G0379; J0702; J3105; J7121

== ENCOUNTER 2024-12-26 09:33 | Outpatient (CLI) | payer OTHER, SELFPAY ==
[2024-12-26] MEDS: BETAMETHASONE SOD PHOS/ACETATE 30 MG/5 ML VIAL 12 MG IM (09:53)
--- OUTSIDE RECORDS SUMMARY | 2024-12-26 10:04 | XMS_ITS | Encounter Summary ---
Author Organization [facility] Address [address] [place] [address] Care Team Providers Care Special Events Coordinator Name Role Phone Unavailable Primary Care Provider Unavailabl e Encounter Details Date Type Department Care Team (Late st Contact Info) Description 12/24/2024 External Device Data [facility] Provider, Abstract NO ADDRESS ON FILE Social History Tobacco Use Types Packs/Day Years Used Date Smoking Tobacco: Never Assessed Comments Unknown Sex and Gender Information Value Date Recorded Sex Assigned at Not on file Legal Sex Female 2:05 PM CDT Gender Identity Not on file Sexual Orientation Not on file documented as of this encounter Plan of Treatment Not on file documented as of this encounter Visit Diagnoses Not on filedocumented in this encounter
--- OUTSIDE RECORDS SUMMARY | 2024-12-26 10:04 | XMS_ITS | Clinical Summary ---
Author Organization [facility] Address [address] [place] [id number] Phone Care Team Providers Care Police Booking Officer Name Role Phone Unavailable Primary Care Provider Unavailabl e Encounters Date Type Department Care Team Description 12/24/2024 External Device Data [facility] ABSTRACTION Provider, Abstract 11/30/2024 External Device Data [facility] Provider, Abstract 11/29/2024 External Device Data [facility] Provider, Abstract 11/27/2024 External Device Data [facility] Provider, Abstract 11/13/2024 External Device Data [facility] Provider, Abstract 10/22/2024 External Device Data [facility] Provider, Abstract 10/17/2024 External Device Data [facility] Provider, Abstract 10/08/2024 External Device Data [facility]STRACTION Provider, Abstract from Last 3 Months Social History Tobacco [...] on patient's age to complete this topic Insurance [employer] [facility] [place]
--- OUTSIDE RECORDS SUMMARY | 2024-12-26 10:04 | XMS_ITS | Encounter Summary ---
Author Organization [facility] Address [address] [place] [address] Phone Care Team Providers Care Junior Analyst Name Role Phone Matty Barrientos MD Primary Care Provider [phone] Encounter Details Date Type Department Care Team (Latest Contact Info) Description 12/28/[address] [facility] Services [address] [place] [address] Krystina Reyes, CUSTOMER TRAINER, LOOP CUTTER [address] [place] [address] Immunity status testing (Primary Dx) Social History [...] examination documented in this encounter Care Teams Junior Analyst Relationship Specialty Start Date End Date Matty Barrientos MD [address] [place] [address] PCP - General Pediatrics 03/27/19 documented as of this encounter
--- OUTSIDE RECORDS SUMMARY | 2024-12-26 10:04 | XMS_ITS | Clinical Summary ---
Author Organization [facility] Address [address] [place] [address] Phone Care Team Providers Care Records Management Analyst Name Role Phone Matty Barrientos MD [...] 0.32 <1 S/CO 04/17/2020 2:52 PM CDT [facility] Comment: Signal/Cutoff ratio < 0.79 is Nondetected Signal/Cutoff ratio 0.80-0.99 is Grayzone Signal/Cutoff ratio > 0.99 is Detected Supplemental assays are recommended if signal/cutoff ratio is >/=1.00. Signal/cutoff ratio result >/= 5.00 is 97% predictive of positivity for recombinant immunoblot assay (RIBA) and will be reported to the [place] Department of Public [facility] as required. Blood Venipuncture / Unknown 04/17/2020 9:40 AM CDT 04/17/2020 10:13 AM CDT us Los Charles MD CHEMISTRY ORDERABLES Final R esult [facility] [address] [place] [address], from Last 3 Months or Most Recently Relevant to Health Maintenance Insurance [facility] OAP Care Teams Records Management Analyst Relationship Specialty Start Date End Date Matty Barrientos MD [address] [place] [address] PCP - General Pediatrics 03/27/19
== END 2024-12-26 09:34 | disposition home or self-care (01) ==
PROVIDERS: Visit Provider Obstetrics & Gynecology
DX: O35.CXX0 Maternal care for other (suspected) fetal abnormality and damage, fetal pulmonary anomalies, not applicable or unspecified (principal); Z3A.00 Weeks of gestation of pregnancy not specified
CPT/HCPCS: 96372; J0702

== ENCOUNTER 2025-01-13 10:25 | Outpatient (RCR) | payer OTHER, SELFPAY ==
[2024-12-27 11:14] VITALS: BP 127/65; PULSE 81
[2024-12-30 14:06] VITALS: BP 133/77; PULSE 92
--- NOTE | 2025-01-08 13:35 | PC.NURSE ---
Message left for Dr. Charles to please call unit back for pt results.
[2025-01-08 13:39] VITALS: BP 108/74; PULSE 79
--- NOTE | 2025-01-08 14:00 | PC.NURSE ---
Received call back from Dr. Charles. informed of BPP 05/02 and reactive NST. states pt may go home at this time. Would like to get an NST and an JEFFREY at her next appt this Monday. RN repeated orders back to confirm.
[2025-01-11 11:45] VITALS: BP 123/75; PULSE 96
--- NOTE | ~2025-01-13 | US_ITS ---
EXAMINATION: US OB BPP wo non-stress DATE: 12/30/2024 13:23 INDICATION: labor. Assess amniotic fluid index. TECHNIQUE: Real-time pelvic ultrasound was performed. The interpreting radiologist was not present fo r the study. COMPARISON: None. FINDINGS: There is a single living fetus in vertex presentation. The placenta is anterior and not low-lying. F etal heart rate is 147 beats per minute (bpm). Normal amniotic fluid index of 12.1 cm (5th%-95%: 8.1- 24.8 cm at 34 weeks estimated gestational age). Biophysical profile performed by the technologist: breathing (30 sec sustained breathing in 30 minutes): 2 out of 2 movement (3 gross body movements in 30 minutes): 2 out of 2 tone (one episode of qsrfuvk-oqldftohn-oajnfce limb movement): 2 out of 2 Amniotic fluid pocket (2 cm): 2 out of 2 Total score: 8 out of 8 IMPRESSION: 1. Single living fetus in vertex presentation with heart rate of 147 bpm. 2. Biophysical profile 8 out of 8. 3. Normal amniotic fluid index of 12.1 cm. Reviewed, dictated and finalized at location A.
--- NOTE | ~2025-01-13 | US_ITS ---
EXAMINATION: US OB BPP wo non-stress DATE: 01/13/2025 11:57 CDT INDICATION: labor/history of bleeding TECHNIQUE: Real-time transabdominal obstetric ultrasound. FINDINGS: 5 para 2 Gestational age by estimated date of delivery: 36 weeks and 3 days There is a single intrauterine gestation in vertex presentation. The placenta is anterior. Amniotic fluid index measures 13.4 cm cardiac activity and movement is noted with a heart rate of 132 beats per minute. Biophysical profile: breathin of 2 movement: 2 of 2 tone: 2 of 2 Amniotic fluid pocket: 2 of 2 Total score: 8 of 8 Static imaging of the cervix was not included on the submitted examination. IMPRESSION: 1. Single intrauterine gestation in vertex presentation. 2: Total biophysical profile score of 8 out of 8. Reviewed, dictated and finalized at location A.
--- NOTE | ~2025-01-13 | US_ITS ---
EXAMINATION: US OB BPP wo non-stress DATE: 01/08/2025 13:08 INDICATION: Placental lakes. Third trimester . TECHNIQUE: Real-time pelvic ultrasound was performed. The interpreting radiologist was not present fo r the study. COMPARISON: None. FINDINGS: There is a single living fetus in vertex presentation. The placenta is anterior with a couple university internship al small anechoic venous lakes. There is a 4.9 x 3.7 cm hypoechoic region without internal vascular f low on color Doppler along the left inferior margin of the placenta suspicious for small subchorionic hematoma. heart rate is 152 beats per minute (bpm). Amniotic fluid volume is subjectively norm al with normal deepest vertical pocket measurement of 5.1 cm. Biophysical profile performed by the technologist: breathing (30 sec sustained breathing in 30 minutes): 2 out of 2 movement (3 gross body movements in 30 minutes): 2 out of 2 tone (one episode of etqoxgb-fyyvdtoho-evvuvsg limb movement): 2 out of 2 Amniotic fluid pocket (2 cm): 2 out of 2 Total score: 8 out of 8 IMPRESSION: 1. Single living fetus in vertex presentation with heart rate of 152 bpm. 2. Biophysical profile 8 out of 8. 2. Likely small subchorionic hematoma along the left inferior margin of the anterior placenta. Reviewed, dictated and finalized at location A. IMPRESSION: 1. Single living fetus in vertex presentation with heart rate of 152 bpm. 2. Biophysical profile 8 out of 8. 2. Likely small subchorionic hematoma along the left inferior margin of the ant erior placenta.
--- NOTE | ~2025-01-13 | US_ITS ---
EXAMINATION: US OB BPP wo non-stress DATE: 01/11/2025 11:37 INDICATION: Chronic abruption. Assess biophysical profile and amniotic fluid index during third trime ster . TECHNIQUE: Real-time pelvic ultrasound was performed. The interpreting radiologist was not present fo r the study. COMPARISON: None. FINDINGS: There is a single living fetus in vertex presentation. The placenta is anterior and not low-lying wi th no evident subchorionic hematoma.. heart rate is 135 beats per minute (bpm). Biophysical profile performed by the technologist: breathing (30 sec sustained breathing in 30 minutes): 2 out of 2 movement (3 gross body movements in 30 minutes): 2 out of 2 tone (one episode of vaxozoi-qftfxpivf-owdrfok limb movement): 2 out of 2 Amniotic fluid pocket (2 cm): 2 out of 2 Total score: 8 out of 8 IMPRESSION: 1. Single living fetus in vertex presentation with heart rate of 135 bpm. 2. Biophysical profile 8 out of 8. Reviewed, dictated and finalized at location A.
--- NOTE | ~2025-01-13 | US_ITS ---
EXAMINATION: US OB BPP wo non-stress DATE: 12/27/2024 12:02 CDT INDICATION: Questionable decelerations. Evaluate amniotic fluid index. TECHNIQUE: Real-time transabdominal obstetric ultrasound. FINDINGS: No prior studies for comparison. There is a single living fetus in vertex presentation. The placenta is anterior without placenta pre via. JEFFREY is normal measuring 13.2 cm. cardiac activity and movement is noted with a heart rate of 145 beats per minute. Biophysical profile: breathin of 2 movement: 2 of 2 tone: 2 of 2 Amniotic flud pocket: 2 of 2 Total score: 8 of 8 IMPRESSION: 1. Single living intrauterine in vertex presentation. 2: Total biophysical profile score of 8/8. 3: Normal JEFFREY measures 13.2 cm. Reviewed, dictated and finalized at location A.
[2025-01-13 11:50] VITALS: BP 112/72; PULSE 114
== END 2025-01-28 17:57 | disposition home or self-care (01) ==
LOC: ANHOBOP 10:25
PROVIDERS: Visit Provider Obstetrics & Gynecology
DX: O36.8310 Maternal care for abnormalities of the fetal heart rate or rhythm, first trimester, not applicable or unspecified (principal); Z3A.00 Weeks of gestation of pregnancy not specified
CPT/HCPCS: 59025; 76819

== ENCOUNTER 2025-01-14 06:01 | Inpatient (IN) | payer OTHER, SELFPAY ==
--- OUTSIDE RECORDS SUMMARY | 2025-01-14 06:06 | XMS_ITS | Encounter Summary ---
Author Organization [facility] Address [address] [place] [address] Phone Care Team Providers Care Horse Buyer Name Role Phone Matty Barrientos MD Primary Care Provider [phone] Encounter Details Date Type Department Care Team (Latest Contact Info) Description 12/28/2023 Transcribe Orders [facility] [address] [place] [address] Krystina Reyes, SUPERIOR COURT JUSTICE, SENIOR COUNSEL [address] [place] [address] Immunity status testing (Primary Dx) Social History [...] examination documented in this encounter Care Teams Horse Buyer Relationship Specialty Start Date End Date Matty Barrientos MD [address] [place] [address] PCP - General Pediatrics 03/27/19 documented as of this encounter
--- OUTSIDE RECORDS SUMMARY | 2025-01-14 06:06 | XMS_ITS | Clinical Summary ---
Author Organization [facility] Address [address] [place] [address] Phone Care Team Providers Care Cleat Thrower Name Role Phone Matty Barrientos MD Primary [...] 0.32 <1 S/CO 04/17/2020 2:52 PM CDT [facility] Comment: Signal/Cutoff ratio < 0.79 is Nondetected Signal/Cutoff ratio 0.80-0.99 is Grayzone Signal/Cutoff ratio > 0.99 is Detected Supplemental assays are recommended if signal/cutoff ratio is >/=1.00. Signal/cutoff ratio result >/= 5.00 is 97% predictive of positivity for recombinant immunoblot assay (RIBA) and will be reported to the [place] Department of Public Health as required. Blood Venipuncture / Unknown 04/17/2020 9:40 AM CDT 04/17/2020 10:13 AM CDT us Los Charles MD CHEMISTRY ORDERABLES Final R esult [facility] [address] [place] [address], from Last 3 Months or Most Recently Relevant to Health Maintenance Insurance [facility] OAP Care Teams Cleat Thrower Relationship Specialty Start Date End Date Matty Barrientos MD [address] [place] [address] PCP - General Pediatrics 03/27/19
--- OUTSIDE RECORDS SUMMARY | 2025-01-14 06:06 | XMS_ITS | Clinical Summary ---
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, fetus 1 01/03/2025 Estimated Date of Delivery Comme nts Yes 02/07/2025 Date entered franki or to episode creation Encounters Date Type Department Care Team Description 01/06/2025 Telephone [facility] Maternal and Medicine [place] [address] [address] Francesco Morton MD Labs Only 01/03/2025 9:30 AM CDT Initial [facility] Maternal and Medicine [place] [address] [address] Francesco Morton MD Subchorionic hemorrhage in third trimester (Primary Dx); Maternal care for anti-D (Rh) antibodies in third trimester, fetus 1 01/03/2025 8:29 AM CDT - 01/03/2025 11:59 PM CDT Hospital Encounter [facility] Maternal and Ground Floor S Pending Sale To [facility] [address] [place] [address] Los Charles MD Discharge Disposition: Home or Self Care 01/03/2025 Orders Only [facility] Maternal and Ground Floor [address] [place] [id number] [place] [phone] Francesco Morton MD Maternal care for isoimmunization, second trimester, single gestation (Primary Dx) 12/30/2024 Abstract [facility] Maternal Medicine [address] [place] [address] Mar Cantrell RN 12/24/2024 External Device Data STL ABSTRACTION Provider, [...] Years Used Date Smoking Tobacco: Never Assessed Estimated Date of Delivery Comme nts Yes 02/07/2025 Date entered franki or to episode creation Sex and Gender Information Value Date Recorded Sex Assigned at Not on file Legal Sex Female 2:05 PM CDT Gender Identity Not on file Sexual Orientation Not on file Last Filed Vital Signs Vital Sign Reading Time Taken Comments Blood Pressure 124/70 01/03/2025 9:34 AM CDT Pul se: 102 Pulse - - Temperature - - Respiratory Rate - - Oxygen Saturation - - Inhaled Oxygen Concentration - - Weight 83.9 kg (185 lb) 01/03/2025 9:34 AM CDT Height 160 cm (5' 3 ) 01/03/2025 9:34 AM CDT Body Mass Index 32.77 01/03/2025 9:34 AM CDT Plan of Treatment Health Maintenance Due Date Last Done Comments DTAP/TDAP/TD VACCINES (1 - Tdap) 12/03/2011 HEPATITIS B VACCINES (1 of 3 - 19+ 3-dose series) 12/03/2011 HPV/Cotest (21-29) 2013 CERVICAL CANCER SCREENING 2022 HPV/Cotest (30-65) 2022 PAP SMEAR 2022 INFLUENZA VACCINE Completed 06/21/2024, , 07/15/2022, Additional history exists HPV VACCINES Aged Out No longer eligi ble based on patient's age to complete this topic RSV VACCINE (60+ or ) (No Doses Required) Completed Procedures Procedure Name Priority Date/Time Associated Diagnosis Comments ANTIBODY SCREEN, Routine 01/03/2025 2:06 PM CDT Maternal care for isoimmunization, second trimester, single gestation EXTRA TUBE Routine 01/03/2025 2:06 PM CDT US OB FOLLOW UP + MCA DOPPLER Routine 01/03/2025 9:35 AM CDT Third trimester bleeding from Last 3 Months Results * EXTRA TUBE (01/03/2025 2:06 PM CDT) COMMENT CHEMISTRY [facility] Comment: An extra specimen was received with no test requested. The specimen will be maintained in storage in case additional testing is needed. Please call the client service department for further assistance. SPECIMEN TYPE Red-top [facility] Comment: Test Performed at: [facility] [id number] [address] [id number] Teresa Sharma MD 01/03/2025 2:06 PM CDT 01/03/2025 2:06 PM CDT Francesco Morton MD CHEMISTRY ORDERABLES [facility] al Result [facility] [phone] [employer] [employer] [address] [employer] [address] * ANTIBODY SCREEN, (01/03/2025 2:06 PM CDT) ANTIBODY SCREEN NO ANTIBODIES DETECTED [employer] Comment: Reference range No antibodies detected This assay is a screening test for the detection of red blood cell antibodies. The test is not to be used for pretransfusion screening or for the medical management of an alloimmunized . Test Performed at: [employer] [address] [address] [id number] Teresa Sharma MD Blood 01/03/2025 2:06 PM CDT 01/03/2025 2:06 PM CDT us Francesco Morton MD BLOOD BANK ORDERABLES Fi nal Result [facility] [phone] [facility] [address] [place] [address] * US OB FOLLOW UP + MCA DOPPLER (01/03/2025 9:35 AM CDT) Anatomical Region Laterality Modality Pelvis Ultrasound Narrative 01/03/2025 10:33 AM CDT STL FOLLOW UP ----- Pat. Name: TRISTAN MCKNIGHT Study Date: 01/03/2025 8:43am Pat. NO: [id number] Referring MD: LOS CHARLES MD Site: [facility] Proof Carrier: Phuong Watts RDMS : 1990 Age: 34 ----- INDICATION ----- Vaginal Bleeding Greater Than 20 Wks, Unspecified 4/ with History of Labor (PTL) Isoimmunization, Anti M O+ CODING ----- Diagnoses Z3A.35: Weeks of gestation O09.213: Supervision of with history of pre-term labor Z36.3: Encounter for screening for malformations HISTORY ----- OB History 4. Para 1 Samuels children born living (T) 1. Miscarriages 2 T1A2L1 MATERNAL ASSESSMENT ----- Physical Exam Weight 84 kg. BMI 32.77 kg/m METHOD ----- Transabdominal ultrasound examination ----- Samuels . Number of fetuses: 1 DATING ----- Cycle: regular cycle GA by prior assessment 35 w + 0 d CATIE by prior assessment: 02/07/2025 Ultrasound examination on: 01/03/2025 GA by U/S based upon: AC, BPD, EFW, Femur, HC GA by U/S 34 w + 1 d CATIE by U/S: 02/13/2025 Method of dating: Restore dating from previous exam Assigned: based on stated CATIE, selected on 09/26/2024 Assigned GA 35 w + 0 d Assigned CATIE: 02/07/2025 BIOMETRY ----- BPD 86.6 mm 35w 0d 51% Hadlock OFD 107.3 mm 35w 3d 62% Rochelle HC 310.8 mm 34w 5d 13% Hadlock AC 304.0 mm 34w 3d 38% Hadlock Femur 63.1 mm 32w 4d 3% Hadlock HC / AC 1.02 42% Nicolaides Weight Calculation: EFW 2,320 g 33w 5d 21% Hadlock EFW (lb,oz) 5 lb 2 oz EFW by Hadlock ([id number]) Extremities / Bony Struc Biometry: FL / BPD 0.73 FL / HC 0.20 FL / AC 0.21 GENERAL EVALUATION ----- Cardiac activity present. FHR 142 bpm. movements: present. Presentation: cephalic Placenta: Placental site: anterior Umbilical cord: Cord vessels: 3 vessel cord. Insertion site: placental insertion: normal Amniotic fluid: Amount of AF: normal amount. MVP 4.4 cm. JEFFREY 14.2 cm. Q1 4.2 cm, Q2 3.3 cm, Q3 4.4 cm, Q4 2.2 cm DOPPLER ----- Mid Cerebral Artery: PS 41.88 cm/s PS 0.82 MoM Right Mid Cerebral Artery: PS 44.50 cm/s ANATOMY ----- The following structures appear normal: Head / Neck Cranium. Choroid plexus. Heart / Thorax 4-chamber view. LVOT view. Diaphragm. Abdomen Stomach. Kidneys. Bladder. GROWTH OVERVIEW ----- Exam date GA BPD (mm) HC (mm) AC (mm) FL (mm) HL (mm) EFW (g) 09/26/2024 20w 6d 50.5 67% 186.0 44% 162.3 59% 34.4 40% 33.0 57% 398 57% 01/03/2025 35w 0d 86.6 51% 310.8 13% 304.0 38% 63.1 3% 2,320 21% COMMENT ----- Patient's name and date of were verified by the kettle hand prior to the exam IMPRESSION ----- Viable at 35 weeks gestation. Ultrasound with care consult requested due to abnormal ultrasound findings and anti-M antibodies. Patient reports 1 prior Cephalic presentation Normal growth Estimated weight the 21st percentile with abdominal circumference at the 30 percentile No structural malformations identified within the limitations of the late ultrasound Amniotic fluid volume is normal Anterior placenta with normal placental cord insertion. Placenta is not low- lying and there are no ultrasound findings to suggest the presence of a placenta accreta spectrum disorder. There is a large right show chorionic fluid collection, probable old hemorrhage, extending from the inferior edge of the placenta onto the lower uterine segment. Peak velocity in the middle cerebral artery is normal. No evidence of critical anemia Consultation provided. Please see separate consult note. Recommendation: - Recommend twice-weekly modified positive profile. NST was performed today - Maternal blood type and antibody screen ordered - Recommend delivery at 37 weeks gestation us Los Charles MD ORDERABLES Edited Result - Final from Last 3 Months Insurance [employer] [facility] [place]ESS
[2025-01-14 06:30] VITALS: TEMP 36.7
[2025-01-14] MEDS: LACTATED RINGERS 1,000 ML 125 ML IV CONT (07:00)
[2025-01-14 07:01] VITALS: BP 124/74; PULSE 93
[2025-01-14 07:04] LABS: Basophils Absolute Auto 0.1 K/mm3 (0.0-0.1); Basophils Percent Auto 0.5 % (0.2-1.2); Eosinophils Absolute Auto 0.1 K/mm3 (0-0.3); Eosinophils Percent Auto 0.7 % (0-4.4); Hematocrit 35.2 % (37.0-47.0); Hemoglobin 11.8 g/dL (12.0-15.0); Immature Granulocyte Absolute 0.47 K/mm3 (0.00-0.031); Immature Granulocyte Percent A 4.8 % (0-0.5); Lymphocytes Absolute Auto 2.49 K/mm3 (0.9-3.2); Lymphocytes Percent Auto 25.2 % (18.3-44.2); Mean Corpuscular HGB Conc 33.5 g/dl (32-36); Mean Corpuscular Volume 95.4 fl (80-100); Mean Platelet Volume 10.8 fl (7.4-10.4); Monocytes Absolute Auto 0.7 K/mm3 (0.1-0.6); Neutrophils Absolute Auto 6.1 K/mm3 (1.3-6.7); Neutrophils Percent Auto 61.8 % (45.5-73.1); Platelet Count Result 160 k/mm3 (150-375); Red Blood Count 3.69 M/mm3 (4.2-5.4); Red Cell Distribution Width 13.8 % (11.5-14.5); White Blood Count 9.9 K/mm3 (4.5-10.0)
[2025-01-14] MEDS: OXYTOCIN 30 UNITS/NS 500 ML 30 UNITS/500 ML BAG IV CONT (07:07)
[2025-01-14 07:08] VITALS: BMI 33.2
--- NOTE | 2025-01-14 07:08 | LDADM ---
This patient, Alysia Mcknight, was admitted to Labor/Delivery/Recovery 102 on 01/14/25 at 06:01. Plans for labor, pain management and were discussed with patient. Patient/family oriented to hospital policies and general routines including ID bracelet, bed and alarms, visiting hours, pain management, procedures, bathroom and other care routines, personal items, smoking policy, room service/diet and guest tray routines, security routines, and visiting hours. Patient/Family are encouraged to report perceived risks to care and to ask questions if they do not understand what they are told or what they should do. See OBIX for further documentation.
[2025-01-14 07:30] VITALS: BP 123/73; PULSE 95
[2025-01-14 08:00] VITALS: BP 124/72; PULSE 85
[2025-01-14 09:13] LABS: Syphilis IgG/IgM Antibody Negative (Negative)
[2025-01-14 09:25] LABS: HIV 1/2 Ab P24 Ag Result Negative (Negative)
--- NOTE | 2025-01-22 08:21 | PM.OBDSVD ---
DS: Admitting Diagnosis Discharge Date 01/14/25 Admitting Diagnosis Chronic abruption DS: Discharge Diagnosis Discharge Diagnosis (1) Subchorionic hemorrhage in third trimester: Code(s): O46.8X3 - Other antepartum hemorrhage, third trimester Status: Acute OB - DS: Summary Hospital Course Hospital Course: she was admitted for planned MIL at 37 weeks for subchorionic hemorrhage in third trimester. She was monitored. Soon after pitocin was initiated there was a discussion about her gestational age. Her gestational age was calculated at 36 weeks not 37. At that time I recommended to stop Pitocin, cancel admission and she was scheduled for 37 weeks. monitoring was reassuring throughout admission. OB Procedures : NST OB Procedures Intrapartum: Other OB Procedures: : None Time Spent with Patient Time attestation: Total time spent providing and/or coordinating discharge services: Discharge Plan Discharge Attending physician on discharge: Los Charles Discharging Clinician: Los Charles Patient Disposition: Home Activity: as tolerated Diet: regular Discharge Instructions: OB ANTEPARTUM DISCHARGE INSTRUCTIONS This information is given to help you properly care for yourself at home after your discharge from the hospital. Follow these instructions until your doctor tells you otherwise. DIET: Additional Diet Instructions: ACTIVITY: Additional Activity Instructions: RETURN TO LABOR AND DELIVERY IF YOU HAVE: Regular contractions, vaginal bleeding, Rupture of membranes, or decreased movement. Additional Reasons to Return to Labor and Delivery: Contractions may feel like abdominal pain, tightening, cramping, pressure, back ache, or thigh ache. OTHER INSTRUCTIONS: Return to Labor and Dellivery on Monday01/17/25 for Induction of Labor. FOLLOW-UP CARE: To see in/on Valuables released to patient or family? Medications from home returned to patient? IF YOU HAVE ANY QUESTIONS REGARDING THESE INSTRUCTIONS, PLEASE CALL [phone]. IF PROBLEMS ARISE, CALL YOUR PROVIDER. IF EMERGENCY CARE IS NEEDED, [facility] EM[facility]GENCY ROOM IS AVAILABLE 24 HOURS A DAY. Patient Language: Yi Stand Alone Forms: General Discharge Information Follow-up/Referrals: Los Charles MD [Physician] - 01/17/25 (Return to OB for Induction of Labor) Discharge Medications: Continued prenat.vits,darrin,fla-[id number] Tablet 1 tablet PO DAILY No Action acetaminophen 500 mg tablet 500 mg PO Q6H PRN (Reason: pain) Qty: 30 0RF ibuprofen 600 mg tablet 600 mg PO Q6H PRN (Reason: pain) Qty: 30 0RF Date of admission: 01/14/25 06:01 Primary Care Provider: UNKNOWN,DOCTOR Admitting Provider: Los Charles Attending physician on admission: Los Charles Condition: Stable
--- NOTE | 2025-02-03 19:10 | P.DS_ITS ---
DS: Admitting Diagnosis Discharge Date 01/14/25 Admitting Diagnosis Induction of labor DS: Discharge Diagnosis Discharge Diagnosis (1) Appointment canceled by hospital: Code(s): Z53.8 - Procedure and treatment not carried out for other reasons Status: Acute OB - DS: Summary Hospital Course Hospital Course: she was admitted for planned MIL at 37 weeks for subchorionic hemorrhage in third trimester. She was monitored. Soon after pitocin was initiated there was a discussion about her gestational age. Her gestational age was calculated at 36 weeks not 37. At that time I recommended to stop Pitocin, cancel admission and she was scheduled for 37 weeks. monitoring was reassuring throughout admission. OB Procedures : None OB Procedures Intrapartum: Other (Canceled induction of labor) OB Procedures: : None Time Spent with Patient Time attestation: Total time spent providing and/or coordinating discharge services: Exam Const: General: comfortable and no acute distress GI: Other: gravid nontender Neuro: General: patient oriented x3 Extrem: General: normal to inspection Psych: Mental Status: mental status grossly normal Discharge Plan Discharge Attending physician on discharge: Los Charles Discharging Clinician: Los Charles Patient Disposition: Home Activity: as tolerated Diet: regular Discharge Instructions: OB ANTEPARTUM DISCHARGE INSTRUCTIONS This information is given to help you properly care for yourself at home after your discharge from the hospital. Follow these instructions until your doctor tells you otherwise. DIET: Additional Diet Instructions: ACTIVITY: Additional Activity Instructions: RETURN TO LABOR AND DELIVERY IF YOU HAVE: Regular contractions, vaginal bleeding, Rupture of membranes, or decreased movement. Additional Reasons to Return to Labor and Delivery: Contractions may feel like abdominal pain, tightening, cramping, pressure, back ache, or thigh ache. OTHER INSTRUCTIONS: Return to Labor and Dellivery on Monday01/17/25 for Induction of Labor. FOLLOW-UP CARE: To see in/on Valuables released to patient or family? Medications from home returned to patient? IF YOU HAVE ANY QUESTIONS REGARDING THESE INSTRUCTIONS, PLEASE CALL [phone]. IF PROBLEMS ARISE, CALL YOUR PROVIDER. IF EMERGENCY CARE IS NEEDED, [facility] EMERG[facility]Y ROOM IS AVAILABLE 24 HOURS A DAY. Patient Language: Sinhala Stand Alone Forms: General Discharge Information Follow-up/Referrals: Los Charles MD [Physician] - 01/17/25 (Return to OB for Induction of Labor) Discharge Medications: Continued prenat.vits,darrin,dzz-zfum-zajga Tablet 1 tablet PO DAILY No Action acetaminophen 500 mg tablet 500 mg PO Q6H PRN (Reason: pain) Qty: 30 0RF ibuprofen 600 mg tablet 600 mg PO Q6H PRN (Reason: pain) Qty: 30 0RF Date of admission: 01/14/25 06:01 Primary Care Provider: UNKNOWN,DOCTOR Admitting Provider: Los Charles Attending physician on admission: Los Charles Condition: Stable
== END 2025-01-14 09:20 | disposition home or self-care (01) | DRG 833 ==
PROVIDERS: Admitting Provider Obstetrics & Gynecology; Visit Provider Obstetrics & Gynecology
DX: O46.8X3 Other antepartum hemorrhage, third trimester (principal); Z3A.36 36 weeks gestation of pregnancy; Z53.8 Procedure and treatment not carried out for other reasons
CPT/HCPCS: 36415; 85025; 86593; 86703; 86850; 86900; 86901; G0432; J2590; J7120

== ENCOUNTER 2025-01-17 06:36 | Inpatient (IN) | payer OTHER, SELFPAY ==
[2025-01-17] VITALS (99 sets, daily range): BP systolic 85–140; BP diastolic 48–92; PULSE 69–130; RESP 16–18; TEMP 36.4–36.8; O2SAT 81–100; BMI 33.2
--- OUTSIDE RECORDS SUMMARY | 2025-01-17 06:39 | XMS_ITS | Clinical Summary ---
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, fetus 1 01/03/2025 Estimated Date of Delivery Comme nts Yes 02/07/2025 Date entered franki or to episode creation Encounters Date Type Department Care Team Description 01/06/2025 Telephone [facility] Maternal and Medicine [place] [address] [address] Francesco Morton MD Labs Only 01/03/2025 9:30 AM CDT Initial [facility] Maternal and Medicine [place] [address] [address] Francesco Morton MD Subchorionic hemorrhage in third trimester (Primary Dx); Maternal care for anti-D (Rh) antibodies in third trimester, fetus 1 01/03/2025 8:29 AM CDT - 01/03/2025 11:59 PM CDT Hospital Encounter [facility] Maternal and Ground Floor S [facility] [address] [place] [address] Los Charles MD Discharge Disposition: Home or Self Care 01/03/2025 Orders Only [facility] Maternal and Ground Floor [address] [place] [address] [place] [address] Francesco Morton MD Maternal care for isoimmunization, second trimester, single gestation (Primary Dx) 12/30/2024 Abstract [facility] Maternal Medicine [address] [address] [place] [address] Mar Cantrell RN 12/24/2024 External Device Data [...] TUBE (01/03/2025 2:06 PM CDT) COMMENT CHEMISTRY [facility] Comment: An extra specimen was received with no test requested. The specimen will be maintained in storage in case additional testing is needed. Please call the client service department for further assistance. SPECIMEN TYPE Red-top [facility] Comment: Test Performed at: [facility] [address] [employer] [place], [place] [address] Teresa Sharma MD 01/03/2025 2:06 PM CDT 01/03/2025 2:06 PM CDT us Francesco Morton MD CHEMISTRY ORDERABLES [facility] al Result [facility] [phone] [facility] [address] [place] [address] * ANTIBODY SCREEN, (01/03/2025 2:06 PM CDT) ANTIBODY SCREEN NO ANTIBODIES DETECTED [facility] [place] Comment: Reference range No antibodies detected This assay is a screening test for the detection of red blood cell antibodies. The test is not to be used for pretransfusion screening or for the medical management of an alloimmunized . Test Performed at: [facility] [address] [place] [address] Teresa Sharma MD Blood 01/03/2025 2:06 PM CDT 01/03/2025 2:06 PM CDT us Francesco Morton MD BLOOD BANK ORDERABLES Fi nal Result [facility] [phone] [facility] [address] [place] [address] * US OB FOLLOW UP + MCA DOPPLER (01/03/2025 9:35 AM CDT) Anatomical Region Laterality Modality Pelvis Ultrasound Narrative 01/03/2025 10:33 AM CDT STL FOLLOW UP ----- Pat. Name: TRISTAN MCKNIGHT Study Date: 01/03/2025 8:43am Pat. NO: [id number] Referring MD: LOS CHARLES MD Site: [facility] Touch Up Edger: Phuong Watts RDMS : 1990 Age: 34 ----- INDICATION ----- Vaginal Bleeding Greater Than 20 Wks, Unspecified 4/1 with History of Labor (PTL) Isoimmunization, Anti [...] 5 lb 2 oz EFW by Hadlock ([id number]) Extremities / Bony Struc Biometry: FL / [...] and date of were verified by the frame gate mortiser operator prior to the exam IMPRESSION ----- Viable [...] - Final from Last [address] [employer] [facility] OPEN ACCESS [facility] Address: [facility] [address] [place] [address]
--- OUTSIDE RECORDS SUMMARY | 2025-01-17 06:40 | XMS_ITS | Encounter Summary ---
Author Organization [facility] Address [address] [place] [address] Phone Care Team Providers Care Pipe Washer Name Role Phone Matty Barrientos MD Primary Care Provider [phone] Encounter Details Date Type Department Care Team (Latest Contact Info) Description 12/28/2023 Transcribe Orders [facility] Services [address] [place] [address] Krystina Reyes, FISHING BOAT MATE, CAPACITY PLANNER [address] [place] [address] Immunity status testing (Primary Dx) Social History [...] examination documented in this encounter Care Teams Pipe Washer Relationship Specialty Start Date End Date Matty Barrientos MD [address] [place] [address] PCP - General Pediatrics 03/27/19 documented as of this encounter
--- OUTSIDE RECORDS SUMMARY | 2025-01-17 06:40 | XMS_ITS | Clinical Summary ---
Author Organization [facility] Address [address] [place] [address] Phone Care Team Providers Care Email Deployment Specialist Name Role Phone Matty Barrientos MD Primary [...] 0.32 <1 S/CO 04/17/2020 2:52 PM CDT [facility] Comment: Signal/Cutoff ratio < 0.79 is Nondetected Signal/Cutoff ratio 0.80-0.99 is Grayzone Signal/Cutoff ratio > 0.99 is Detected Supplemental assays are recommended if signal/cutoff ratio is >/=1.00. Signal/cutoff ratio result >/= 5.00 is 97% predictive of positivity for recombinant immunoblot assay (RIBA) and will be reported to the [place] Department of Public Health as required. Blood Venipuncture / Unknown 04/17/2020 9:40 AM CDT 04/17/2020 10:13 AM CDT us Los Charles MD CHEMISTRY ORDERABLES Final R esult [facility] [address] [place] [address], from Last 3 Months or Most Recently Relevant to Health Maintenance Insurance [facility] Care Teams Email Deployment Specialist Relationship Specialty Start Date End Date Matty Barrientos MD [address] [place] [address] PCP - General Pediatrics 03/27/19
--- NOTE | 2025-01-17 07:06 | LDADM ---
This patient, Alysia Mcknight, was admitted to Labor/Delivery/Recovery 102 on 01/17/25 at 06:36. Plans for labor, pain management and were discussed with patient. Patient/family oriented to hospital policies and general routines including ID bracelet, bed and alarms, visiting hours, pain management, procedures, bathroom and other care routines, personal items, smoking policy, room service/diet and guest tray routines, security routines, and visiting hours. Patient/Family are encouraged to report perceived risks to care and to ask questions if they do not understand what they are told or what they should do. See OBIX for further documentation.
[2025-01-17 07:26] LABS: Basophils Absolute Auto 0.1 K/mm3 (0.0-0.1); Basophils Percent Auto 0.5 % (0.2-1.2); Eosinophils Percent Auto 0.4 % (0-4.4); Hemoglobin 13.1 g/dL (12.0-15.0); Immature Granulocyte Absolute 0.47 K/mm3 (0.00-0.031); Immature Granulocyte Percent A 4.6 % (0-0.5); Lymphocytes Absolute Auto 2.12 K/mm3 (0.9-3.2); Lymphocytes Percent Auto 20.8 % (18.3-44.2); Mean Corpuscular HGB Conc 33.6 g/dl (32-36); Mean Corpuscular Hemoglobin 32.6 pg (26-34); Mean Platelet Volume 10.5 fl (7.4-10.4); Monocytes Absolute Auto 0.7 K/mm3 (0.1-0.6); Monocytes Percent Auto 7.1 % (2.6-8.5); Neutrophils Absolute Auto 6.8 K/mm3 (1.3-6.7); Neutrophils Percent Auto 66.6 % (45.5-73.1); Platelet Count Result 179 k/mm3 (150-375); Red Blood Count 4.02 M/mm3 (4.2-5.4); Red Cell Distribution Width 13.8 % (11.5-14.5); White Blood Count 10.2 K/mm3 (4.5-10.0)
[2025-01-17] MEDS: LACTATED RINGERS 1,000 ML 125 ML IV CONT (07:37)
[2025-01-17] MEDS: OXYTOCIN 30 UNITS/NS 500 ML 30 UNITS/500 ML BAG IV CONT (07:42)
[2025-01-17 08:02] LABS: Syphilis IgG/IgM Antibody Negative (Negative)
[2025-01-17 08:14] LABS: HIV 1/2 Ab P24 Ag Result Negative (Negative)
--- NOTE | 2025-01-17 08:58 | P.HP_ITS ---
H&P: HPI History of Present Illness Date/Time: 01/17/25 08:58 Chief Complaint: Induction of labor Narrative: Patient is a 34 y/o at 37 weeks admitted for [facility] due to clinical chronic abruption. She had third trimester bleeding at 33 weeks and finds of a subchorionic hematoma. She has had reassuring surveillance. MFM consultation recommended induction at 37 weeks. She has not had bleeding since her initial presentation at 33 weeks. PNC also significant for prior and prior successful . She has been counseled regarding risk benefit of trial of labor vs repeat section and has opted for trial of labor with induction. Labs reviewed. GBS neg. Review of Systems Review of Systems: All systems reviewed & are unremarkable except as noted in HPI and below Constitutional: Constitutional: Reports no additional constitutional complaints and Denies headache(s) Eyes: Eyes: Denies spots in vision ENT: Reports system reviewed and no additional complaints, except as d ocumented and Denies headache(s) Cardiovascular: Cardiovascular: Denies chest pain and Denies dyspnea Respiratory: Respiratory: Denies dyspnea Gastrointestinal: Gastrointestinal: Reports no additional gastrointestinal complaints Genitourinary: Genitourinary: Reports amenorrhea Musculoskeletal: Musculoskeletal: Reports no additional musculoskeletal complaints Integumentary/Breasts: Skin/Breast: Denies breast mass and Denies rash Neurologic: Denies headache(s) Psychiatric: Psychiatric: Reports no additional psychiatric complaints [facility] Past Medical History Medical History Missed Surgical History Surgical History Previous section [place] teeth removed Family History Family History Grandparent Diabetes mellitus Hypertension Father Family history of elevated blood lipids Prostate carcinoma Hypertension Cerebrovascular accident Other Down's syndrome Social History Social History Smoking status: Never smoker Second hand tobacco smoke exposure: No Alcohol intake: current Substance use: never Do You Feel Safe in your Home?: Yes Lack of Transportation: No Lack of Food: Never True Current Housing: I Have Housing Concerned About Future Housing: No Difficulty Paying Gas/Electric Bills: No Difficulty Paying for Meds: No Currently Unemployed: No Education: Bachelor's Degree Difficulty w/ Childcare or Family Care: No Spiritual care concerns: No Meds Home Medications and Allergies Home Medications ?Medication ?Instructions ?Recorded ?Confirmed ?Type prenat.vits,darrin,bqq-ljbu-lwont 1 tablet PO DAILY 03/01/22 01/16/25 History Allergies Allergy/AdvReac Type Severity Reaction Status Date / Time No Known Allergies Allergy Verified 01/16/25 10:18 Vital Signs Vital Signs - 24 hr 01/17/25 06:59 01/17/25 07:30 01/17/25 08:00 Temperature 97.5 F L Pulse Rate 96 99 90 Blood Pressure 114/67 113/71 107/62 01/17/25 08:30 Temperature Pulse Rate 89 Blood Pressure 109/65 Exam Const: General: no acute distress Eyes: General: appearance normal, both eyes and all related structures Resp: Effort & Inspection: normal respiratory effort Cardio: Rate: regular rate GI: Other: Gravid no fundal tenderness no right upper quadrant pain Skin: General skin exam: no rashes or lesions noted Neuro: Cognition (Neuro): normal cognition Extrem: General: normal to inspection Psych: Mental Status: mental status grossly normal H&P: Results Labs Labs: Short CBC 01/17/25 Range/Units 07:11 WBC 10.2 H (4.5-10.0) K/mm3 Hgb 13.1 (12.0-15.0) g/dL Hct 39.0 (37.0-47.0) % Plt Count 179 (150-375) k/mm3 Assessment and Plan Assessment and plan (1) Encounter for induction of labor: Code(s): Z34.90 - Encounter for supervision of normal , unspecified, unspecified trimester Status: Acute Assessment and Plan: 1. Admit 2. Pitocin induction.
--- NOTE | 2025-01-17 09:08 | PM.OBPNLAB ---
Pain Control Date/time seen: 01/17/25 09:08 Comments: fht 135, cat 1, AROM clear, /3, IUPC placed.
--- NOTE | 2025-01-17 09:10 | P.DS_ITS ---
DS: Admitting Diagnosis Admitting Diagnosis Induction of labor Chronic abruption Vaginal after . DS: Discharge Diagnosis Discharge Diagnosis (1) (vaginal after ): Code(s): O34.219 - Maternal care for unspecified type scar from previous delivery Status: Acute OB - DS: Summary Hospital Course Hospital Course: She was admitted for induction of labor for chronic abruption. Pitocin was started. She had AROM clear fluid and IUPC placed. She had an uncomplicated . She did well . OB Procedures : NST and Ultrasound OB Procedures Intrapartum: OB Procedures: : None Peripartum Data Infant Delivery Method: Natural Vaginal Laceration Description: Perineal - 1st Degree complications: none Status at Discharge Functional status at discharge: independent ambulation Time Spent with Patient Time attestation: Total time spent providing and/or coordinating discharge services: Exam Const: General: cooperative Orientation/consciousness: oriented to person, oriented to place and oriented to time HENMT: Face/Nose/Sinus: Normal external nose present Eyes: General: appearance normal, both eyes and all related structures Resp: Effort & Inspection: normal respiratory effort GI: Inspection: normal to inspection Skin: General skin exam: normal color Neuro: General: oriented to person, oriented to place and oriented to time Extrem: General: normal to inspection and no calf tenderness Psych: Appearance: grossly normal Mental Status: mental status grossly normal DS: Data Data Completed and Pending Labs on day of discharge: Labs from last 24 hours 01/17/25 07:11 WBC 10.2 H RBC 4.02 L Hgb 13.1 Hct 39.0 MCV 97.0 MCH 32.6 MCHC 33.6 RDW 13.8 Plt Count 179 MPV 10.5 H Immature Gran % (Auto) 4.6 H Neut % (Auto) 66.6 Lymph % (Auto) 20.8 [place] % (Auto) 7.1 Eos % (Auto) 0.4 Baso % (Auto) 0.5 Lymph # (Auto) 2.12 [place] # (Auto) 0.7 H Eos # (Auto) 0.0 Baso # (Auto) 0.1 Abs Immat Gran (auto) 0.47 H Absolute Neuts (auto) 6.8 H Absolute Nucleated RBC 0.000 Nucleated RBC % 0.0 Syphilis IgG/IgM Ab Negative HIV 1&2 Ab/P24 Ag 4thGn Negative Blood Type O Positive Antibody Screen Positive Antibody Identification Pending Antigen Identification Pending ENRIQUE, IgG Interpret Not Performed ENRIQUE, Poly Interpret Negative ENRIQUE, Complement Interp Not Performed Discharge Plan Discharge Attending physician on discharge: Los Charles Consulting providers: Jacki Lambert Patient Disposition: Home Activity: may shower and pelvic rest Diet: regular Patient Instructions: Antibiotic Form Patient Language: Grenadian Stand Alone Forms: General Discharge Information Follow-up/Referrals: Los Charles MD [Physician] - Call for Appointment (4-6 week visit) Discharge Medications: No Action prenat.vits,darrin,bod-mmms-hgqiw Tablet 1 tablet PO DAILY Date of admission: 01/17/25 06:36 Primary Care Provider: PHYSICIAN,SOCIAL WORKER PALLIATIVE CARE Admitting Provider: Los Charles Attending physician on admission: Los Charles Condition: Stable
--- NOTE | 2025-01-17 12:44 | PM.OBPNLAB ---
Pain Control Date/time seen: 01/17/25 12:44 Comments: Cat 2, /2.
[2025-01-17] MEDS: LACTATED RINGERS 1,000 ML 999 ML IV CONT (12:45)
[2025-01-17] MEDS: ONDANSETRON INJ 4 MG/2 ML VIAL IV PUSH (12:54)
[2025-01-17] MEDS: fentaNYL CITRATE INJ (*CRX) 100 MCG/2 ML VIAL IV PUSH (12:57)
--- NOTE | 2025-01-17 12:57 | P.PNAN_ITS ---
Anes - Eval Pre Procedure Procedure: Labor Epidural Date/Time: 01/17/25 12:57 Surgeon: Araceli Preop Diagnosis: Labor Pain Pre Op Diagnosis: IOL Patient Data Age: 34 Gender: F Height: 1.6 m Weight: 85 kg Last Vital Signs Temp 36.6 C 01/17/25 11:11 Pulse 74 01/17/25 12:31 BP 121/58 L 01/17/25 12:31 Pulse Ox 100 01/17/25 12:39 Allergies Allergy/AdvReac Type Severity Reaction Status Date / Time No Known Allergies Allergy Verified 01/16/25 10:18 Home Medications ?Medication ?Instructions ?Recorded ?Confirmed ?Type prenat.vits,darrin,[id number] 1 tablet PO DAILY 03/01/22 01/16/25 History Laboratory Tests 01/17/25 07:11 WBC 10.2 H K/mm3 (4.5-10.0) RBC 4.02 L M/mm3 (4.2-5.4) Hgb 13.1 g/dL (12.0-15.0) Hct 39.0 % (37.0-47.0) MCV 97.0 fl (80-100) MCH 32.6 pg (26-34) MCHC 33.6 g/dl (32-36) RDW 13.8 % (11.5-14.5) Plt Count 179 k/mm3 (150-375) MPV 10.5 H fl (7.4-10.4) Immature Gran % (Auto) 4.6 H % (0-0.5) Neut % (Auto) 66.6 % (45.5-73.1) Lymph % (Auto) 20.8 % (18.3-44.2) [place] % (Auto) 7.1 % (2.6-8.5) Eos % (Auto) 0.4 % (0-4.4) Baso % (Auto) 0.5 % (0.2-1.2) Lymph # (Auto) 2.12 K/mm3 (0.9-3.2) [place] # (Auto) 0.7 H K/mm3 (0.1-0.6) Eos # (Auto) 0.0 K/mm3 (0-0.3) Baso # (Auto) 0.1 K/mm3 (0.0-0.1) Abs Immat Gran (auto) 0.47 H K/mm3 (0.00-0.031) Absolute Neuts (auto) 6.8 H K/mm3 (1.3-6.7) Absolute Nucleated RBC 0.000 K/mm3 (0.0-0.012) Nucleated RBC % 0.0 % (0.0-0.2) Syphilis IgG/IgM Ab Negative (Negative) HIV 1&2 Ab/P24 Ag 4thGn Negative (Negative) Blood Type O Positive Antibody Screen Positive Antibody Identification Pending Antigen Identification Pending ENRIQUE, IgG Interpret Not Performed ENRIQUE, Poly Interpret Negative ENRIQUE, Complement Interp Not Performed : gestational age (CATIE 02/07/25, ) Patient hx anesthesia problems: none Family hx anesthesia problems: none Results Review: All pre-operative results and documents have been reviewed as part of the pre- operative evaluation. [facility] Past Medical History Medical History Missed Surgical History Surgical History Previous section [place] teeth removed Family History Family History Grandparent Diabetes mellitus Hypertension Father Family history of elevated blood lipids Prostate carcinoma Hypertension Cerebrovascular accident Other Down's syndrome Social History Social History Smoking status: Never smoker Second hand tobacco smoke exposure: No Alcohol intake: current Substance use: never Do You Feel Safe in your Home?: Yes Lack of Transportation: No Lack of Food: Never True Current Housing: I Have Housing Concerned About Future Housing: No Difficulty Paying Gas/Electric Bills: No Difficulty Paying for Meds: No Currently Unemployed: No Education: Bachelor's Degree Difficulty w/ Childcare or Family Care: No Spiritual care concerns: No Exam Day of Procedure 01/17/25 12:57 Patient weight: normal Heart: regular rate and rhythm Lungs: normal air movement Airway: Mallampati scale class II Neurological: alert and oriented
[2025-01-17] MEDS: OXYTOCIN 30 UNITS/NS 500 ML 30 UNITS/500 ML BAG 125 UNITS IV CONT (14:39)
--- NOTE | 2025-01-17 14:42 | P.PCNOB_ITS ---
OB - Vaginal Delivery Note Procedure Delivery date: 01/17/25 Events: Previous Delivery and Other (prior successful , chronic abruptuon) Induction method: Per Pitocin Protocol Delivery augmentation: Rupture of Membranes Delivery monitor: External FHT, External Uterine, Internal FHT and Internal Uterine Route of delivery: Episiotomy description: None Laceration Description: Perineal - 1st Degree (at introitus) Delivery repair: vicryl (3.0 vicryl) Specimen: Yes Quantitative Blood Loss (ml): 150 Anesthesia type: Epidural Disposition: Floor Complications: No immediate complications Narrative: She was admitted for [facility] with pitocin. Pitocin started. She had AROM clear fluid and IUPC placed. She progressed to active labor. Epidural placed on request. She rapidly dilated to complete. tracing significant for periods of bradycardia and variable decelerations during rapid transition to complete. She delivered a male infant. Nose and mouth suctioned at perineum. The rest of infant delivered. was vigorously crying and placed on maternal abdomen. Placenta delivered spontaneously and intact. Small laceration approximated with 3.0 vicryl for hemostasis. Hemostasis obtained. [place] Baby Date of : 01/17/25 Time of : 14:06 Gestational Age by Date: 37 Infant gender: Male Weight (pounds): 6 Weight (ounces): 0 presentation: vertex position: Right Occiput Anterior Placenta delivery description: Spontaneous Cord Vessel Description: 3 Vessels score one minute: 8 score five minutes: 9
[2025-01-17] MEDS: LORATADINE 10 MG TABLET PO (18:24)
[2025-01-17] MEDS: DOCUSATE SODIUM 100 MG CAPSULE PO (19:02)
[2025-01-17] MEDS: LANOLIN (LANSINOH) 7.5 GM CREAM 1 APPLIC TOPICAL (19:02)
[2025-01-17] MEDS: ACETAMINOPHEN 325 MG TABLET 650 MG PO (19:02)
[2025-01-17] MEDS: BENZOCAINE 20% AER SPR (*SP) 56 GM CAN 1 SPRAY TOPICAL (19:05)
[2025-01-17] MEDS: WITCH HAZEL 40 PADS 1 PAD TOPICAL (19:05)
--- NOTE | 2025-01-17 19:37 | PC.NURSE ---
1836. Patient transferred to post room #282 via wheelchair, at moms side in crib. Support person present. Oriented to unit, room, information board, rooming in, admission packet and security measures. Patient verbalizes understanding.
[2025-01-18 04:48] LABS: Hematocrit 31.8 % (37.0-47.0); Hemoglobin 10.8 g/dL (12.0-15.0)
[2025-01-18] MEDS: MULTIVIT/MIN/PREN/FOL AC/IRON TABLET 1 TAB PO (07:15)
[2025-01-18] MEDS: IBUPROFEN 600 MG TABLET PO (07:15)
[2025-01-18 07:37] VITALS: BP 95/56; PULSE 86; RESP 17; TEMP 36.4; O2SAT 97
--- NOTE | 2025-01-18 07:56 | PM.OBDSVD ---
DS: Admitting Diagnosis Discharge Date 01/18/25 Admitting Diagnosis intrauterine at term OB - DS: Summary Hospital Course Hospital Course: She was admitted for induction of labor for chronic abruption. Pitocin was started. She had AROM clear fluid and IUPC placed. She had an uncomplicated . She did well . OB Procedures : None OB Procedures Intrapartum: Spontaneous Vag Delivery OB Procedures: : None Peripartum Data Laceration Description: Perineal - 1st Degree (at introitus) Episiotomy description: None Status at Discharge Functional status at discharge: independent ambulation Overall status at discharge: patient is back to baseline Time Spent with Patient Time attestation: Total time spent providing and/or coordinating discharge services: Time spent: Less than 30 minutes Exam Const: General: comfortable and no acute distress Resp: Effort & Inspection: normal respiratory effort Auscultation: clear to auscultation bilaterally Cardio: Rate: regular rate GI: GI Palp: Yes Soft to palpation Auscultation: normal bowel sounds Other: Fundus firm below umbilicus Psych: Appearance: grossly normal Mental Status: mental status grossly normal Affect: normal affect DS: Data Data Completed and Pending Labs on day of discharge: Labs from last 24 hours 01/18/25 01/17/25 04:29 07:11 Hgb 10.8 L Hct 31.8 L Syphilis IgG/IgM Ab Negative HIV 1&2 Ab/P24 Ag 4thGn Negative Blood Type O Positive Antibody Screen Positive Antibody Identification Pending Antigen Identification Pending ENRIQUE, IgG Interpret Not Performed ENRIQUE, Poly Interpret Negative ENRIQUE, Complement Interp Not Performed Discharge Plan Discharge Attending physician on discharge: Los Charles Consulting providers: Jacki Lambert Discharging Clinician: Randy Stacy Patient Disposition: Home Activity: may shower and pelvic rest Diet: regular Patient Instructions: Antibiotic Form Patient Language: Luxembourgish Stand Alone Forms: General Discharge Information Follow-up/Referrals: Los Charles MD [Physician] - Call for Appointment (4-6 week visit) Discharge Medications: New ibuprofen 600 mg tablet 600 mg PO Q6H PRN (Reason: pain) Qty: 30 0RF acetaminophen 500 mg tablet 500 mg PO Q6H PRN (Reason: pain) Qty: 30 0RF Continued prenat.vits,darrin,evf-vrrg-cinze Tablet 1 tablet PO DAILY Date of admission: 01/17/25 06:36 Primary Care Provider: PHYSICIAN,GRAVITY PROSPECTING OPERATOR HELPER Admitting Provider: Los Charles Attending physician on admission: Los Charles Condition: Stable
[2025-01-18] MEDS: ACETAMINOPHEN 325 MG TABLET 650 MG PO (11:07)
[2025-01-21 11:20] VITALS: BP 117/82; PULSE 87; RESP 18; TEMP 36.9; O2SAT 100
== END 2025-01-18 15:30 | disposition home or self-care (01) | DRG 807 ==
LOC: ANHLDR 14:39 → ANHOB2 19:31
PROVIDERS: Admitting Provider Obstetrics & Gynecology; Visit Provider Obstetrics & Gynecology
DX: O45.8X3 Other premature separation of placenta, third trimester (principal); Z37.0 Single live birth; Z3A.37 37 weeks gestation of pregnancy; O34.211 Maternal care for low transverse scar from previous cesarean delivery; O70.0 First degree perineal laceration during delivery; O36.8330 Maternal care for abnormalities of the fetal heart rate or rhythm, third trimester, not applicable or unspecified
CPT/HCPCS: 36415; 85014; 85018; 85025; 86593; 86703; 86850; 86880; 86900; 86901; 86902; 88307; A9270; G0432; J2405; J2590; J2795; J3010; J7120